=== PATIENT | female | born 1965 | race Caucasian/White ===

== ENCOUNTER 2019-02-03 11:29 | Emergency (ER) | payer SELFPAY ==
[~2019-02-03] VITALS: Ht 165.1 cm; Wt 108.9 kg
[2019-02-03] MEDS ORDERED: CRUTCH1 EACH (13:13)
== END 2019-02-03 13:29 | disposition home or self-care (01) ==
LOC: ED 11:29
DX: S93.402A Sprain of unspecified ligament of left ankle, initial encounter (principal); Z88.5 Allergy status to narcotic agent; Z79.899 Other long term (current) drug therapy; X50.1XXA Overexertion from prolonged static or awkward postures, initial encounter
CPT/HCPCS: 73610; 96372; 99283-25; J1885

== ENCOUNTER 2019-12-13 11:57 | Emergency (ER) | payer MEDICAID ==
[~2019-12-13] VITALS: Ht 165.1 cm; Wt 127.0 kg
[~2019-12-13 11:57] MED LIST: CRUTCH1 EACH
[2019-12-13] MEDS ORDERED: VENTOLIN HFA18 GM INH (12:11)
[2019-12-13] MEDS ORDERED: ZITHROMAX250 MG PO (15:37)
[2019-12-13] MEDS ORDERED: PREDNISONE20 MG PO (15:37)
--- NOTE | 2019-12-13 21:02 | EKG ---
[facility] [address] [facility] [place], [place] [address] Signed Normal sinus rhythm Low voltage QRS Borderline ECG No previous ECGs available Confirmed by LESTER GRANT MD ([id number]) on 12/13/2019 9:01:52 PM Electronically Signed By: LESTER GRANT MD 12/13/192101 PATIENT NAME: MARTHA JOYCE FERCHO Electrocardiogram DATE OF : 61 PHYSICIAN: LESTER GRANT MD REPORT #: [id number] REPORT IS CONFIDENTIAL AND NOT TO BE RELEASED WITHOUT AUTHORIZATION
== END 2019-12-13 16:13 | disposition home or self-care (01) ==
LOC: ED 11:57
DX: J44.1 Chronic obstructive pulmonary disease with (acute) exacerbation (principal); Z87.891 Personal history of nicotine dependence
CPT/HCPCS: 71045; 80053; 83880; 85025; 93005; 93010; 96374; 99285-25; J2930

== ENCOUNTER 2021-01-10 14:19 | Emergency (ER) | payer OTHER ==
[~2021-01-10] VITALS: Ht 165.1 cm; Wt 127.0 kg
[~2021-01-10 14:19] MED LIST changes: +PREDNISONE20 MG PO; +VENTOLIN HFA18 GM INH; +ZITHROMAX250 MG PO
--- OUTSIDE RECORDS SUMMARY | 2021-01-10 14:22 | XMS ---
PreManage Notification: MARTHA JOYCE Security Chassis Driver Events No recent Security Events currently on file CRITERIA MET - Group Notification CARE PROVIDERS There are no care providers on record at this time. David has no Care Guidelines for this patient. Care History Medical/Surgical 12/15/2019 [facility] -CHW CONTACTED PATIENT- DISCUSSED THE HELP WITH PCP SET UP. -PATIENT CURRENTLY DOES NOT HAVE INSURANCE-CHW SPOKE WITH [place]-PATIENT WILL BE SENDING IN DOCUMENTS TO [place] TO SEE IF PATIENT QUALIFIES FOR INSURANCE. -ONCE PATIENT INSURANCE IS ESTABLISHED SHE WILL CONTACT CHW TO HELP WITH PCP SET UP IN THE AREA. ECharisse. VISIT COUNT (12 MO.) 1 [facility] TOTAL 1 NOTE: Visits indicate total known visits. ED/UCC VISIT TRACKING (12 MO.) 01/10/2021 14:20 [facility] [place] TYPE: Emergency COMPLAINT: - LEFT LEG SWELLING, PUSSY INPATIENT VISIT TRACKING (12 MO.) No inpatient visits to display in this time frame [id number]
[2021-01-10] MEDS ORDERED: CEPHALEXIN500 M1 PO (18:19)
[2021-01-10] MEDS ORDERED: BACTRIM DS TAB1 EACH PO (18:19)
[2021-01-10] MEDS ORDERED: HYDROCODON-ACE1 EA11 PO (19:32)
== END 2021-01-10 20:03 | disposition home or self-care (01) ==
LOC: ED 14:19
DX: M70.42 Prepatellar bursitis, left knee (principal); L03.116 Cellulitis of left lower limb; J44.9 Chronic obstructive pulmonary disease, unspecified; Z87.891 Personal history of nicotine dependence; Z88.5 Allergy status to narcotic agent
CPT/HCPCS: 10060; 20610; 80053; 82945; 85025; 85810; 86431; 89051; 89060; 99152; 99283-25; J0690; J1170; J1885; J2250

== ENCOUNTER 2021-01-12 09:34 | Emergency (ER) | payer OTHER ==
[~2021-01-12] VITALS: Ht 165.1 cm; Wt 127.0 kg
[~2021-01-12 09:34] MED LIST changes: +BACTRIM DS TAB1 EACH PO; +CEPHALEXIN500 M1 PO; +HYDROCODON-ACE1 EA11 PO
--- OUTSIDE RECORDS SUMMARY | 2021-01-12 09:40 | XMS ---
PreManage Notification: MARTHA JOYCE Security Sash Maker Events No recent Security Events currently on file CRITERIA MET - Group Notification - [facility] - 2 Visits in 30 Days CARE PROVIDERS There are no care providers on record at this time. David has no Care Guidelines for this patient. Care History Medical/Surgical 12/15/2019 [facility] -CHW CONTACTED PATIENT- DISCUSSED THE HELP WITH PCP SET UP. -PATIENT CURRENTLY DOES NOT HAVE INSURANCE-CHW SPOKE WITH [place]-PATIENT WILL BE SENDING IN DOCUMENTS TO [place] TO SEE IF PATIENT QUALIFIES FOR INSURANCE. -ONCE PATIENT INSURANCE IS ESTABLISHED SHE WILL CONTACT CHW TO HELP WITH PCP SET UP IN THE AREA. [place] VISIT COUNT (12 MO.) 2 [facility] TOTAL 2 NOTE: Visits indicate total known visits. ED/UCC VISIT TRACKING (12 MO.) 01/12/2021 09:34 [facility] [place] TYPE: Emergency COMPLAINT: - KNEE PAIN 01/10/2021 14:20 [facility] [place] TYPE: Emergency COMPLAINT: - LEFT LEG SWELLING, PUSSY INPATIENT VISIT TRACKING (12 MO.) No inpatient visits to display in this time frame [id number]
[2021-01-12] MEDS ORDERED: CEFTRIAXON2 GM/50 ML IV (14:42)
[2021-01-12] MEDS ORDERED: NAPROSYN500 MG PO (14:42)
[2021-01-12] MEDS ORDERED: HYDROCODON-ACE1 EA10 PO (14:42)
== END 2021-01-12 15:30 | disposition home or self-care (01) ==
LOC: ED 09:34
DX: L03.116 Cellulitis of left lower limb (principal); J44.9 Chronic obstructive pulmonary disease, unspecified; Z88.5 Allergy status to narcotic agent; Z79.899 Other long term (current) drug therapy
CPT/HCPCS: 36556; 36569; 73700; 80053; 83605; 85025; 99284-25; J0696; J1885

== ENCOUNTER 2021-01-14 14:17 | Emergency (ER) | payer OTHER ==
[~2021-01-14] VITALS: Ht 165.1 cm; Wt 127.0 kg
[~2021-01-14 14:17] MED LIST changes: +CEFTRIAXON2 GM/50 ML IV; +HYDROCODON-ACE1 EA10 PO; +NAPROSYN500 MG PO
--- OUTSIDE RECORDS SUMMARY | 2021-01-14 14:24 | XMS ---
PreManage Notification: MARTHA JOYCE Security Bias Binding Folder Events No recent Security Events currently on file CRITERIA MET - Group Notification - [facility] - 2 Visits in 30 Days CARE PROVIDERS There are no care providers on record at this time. David has no Care Guidelines for this patient. Care History Medical/Surgical 12/15/2019 [facility] -CHW CONTACTED PATIENT- DISCUSSED THE HELP WITH PCP SET UP. -PATIENT CURRENTLY DOES NOT HAVE INSURANCE-CHW SPOKE WITH [place]-PATIENT WILL BE SENDING IN DOCUMENTS TO [place] TO SEE IF PATIENT QUALIFIES FOR INSURANCE. -ONCE PATIENT INSURANCE IS ESTABLISHED SHE WILL CONTACT CHW TO HELP WITH PCP SET UP IN THE AREA. Ronald VISIT COUNT (12 MO[address] [facility] TOTAL 3 NOTE: Visits indicate total known visits. ED/UCC VISIT TRACKING (12 MO.) 01/14/2021 14:18 [facility] [place] TYPE: Emergency COMPLAINT: - L LEG WOUND 01/12/2021 09:34 [facility] [place] TYPE: Emergency COMPLAINT: - KNEE PAIN 01/10/2021 14:20 [facility] [place] TYPE: Emergency COMPLAINT: - LEFT LEG SWELLING, PUSSY DIAGNOSES: - Cellulitis of left lower limb - Allergy status to narcotic agent - Chronic obstructive pulmonary disease, unspecified - Prepatellar bursitis, left knee - Pain in left knee - Personal history of nicotine dependence INPATIENT VISIT TRACKING (12 MO.) No inpatient visits to display in this time frame [id number]
[2021-01-14] MEDS ORDERED: HYDROCODON-ACE1 EAC8 PO (18:56)
== END 2021-01-14 19:22 | disposition short-term general hospital (02) ==
LOC: ED 14:17
DX: L03.116 Cellulitis of left lower limb (principal); B95.62 Methicillin resistant Staphylococcus aureus infection as the cause of diseases classified elsewhere; J44.9 Chronic obstructive pulmonary disease, unspecified; Z88.5 Allergy status to narcotic agent; Z79.899 Other long term (current) drug therapy; Z79.52 Long term (current) use of systemic steroids
CPT/HCPCS: 73701; 80053; 83605; 85025; 99284-25; A9270; J1885; J3370; Q9967

== ENCOUNTER 2021-08-22 10:35 | Emergency (ER) | payer OTHER ==
[~2021-08-22] VITALS: Ht 167.6 cm; Wt 126.5 kg
[~2021-08-22 10:35] MED LIST changes: +HYDROCODON-ACE1 EAC8 PO
--- OUTSIDE RECORDS SUMMARY | 2021-08-22 10:38 | XMS ---
PreManage Notification: MARTHA JOYCE Security Inside Upholsterer Events No recent Security Events currently on file CRITERIA MET - Group Notification - PDMP CARE PROVIDERS There are no care providers on record at this time. David has no Care Guidelines for this patient. Care History Medical/Surgical 12/15/2019 [facility] -CHW CONTACTED PATIENT- DISCUSSED THE HELP WITH PCP SET UP. -PATIENT CURRENTLY DOES NOT HAVE INSURANCE-CHW SPOKE WITH [place]-PATIENT WILL BE SENDING IN DOCUMENTS TO [place] TO SEE IF PATIENT QUALIFIES FOR INSURANCE. -ONCE PATIENT INSURANCE IS ESTABLISHED SHE WILL CONTACT CHW TO HELP WITH PCP SET UP IN THE AREA. E.Evon. VISIT COUNT (12 MO.) 4 [facility] TOTAL 4 NOTE: Visits indicate total known visits. ED/UCC VISIT TRACKING (12 MO.) 08/22/2021 10:37 [facility] [place] TYPE: Emergency COMPLAINT: - LUMPS IN ARM PITS 01/14/2021 14:18 [facility] [place] TYPE: Emergency COMPLAINT: - L LEG WOUND/ NO INJ DIAGNOSES: - Methicillin resistant Staphylococcus aureus infection as the cause of diseases classified elsewhere - Cellulitis of left lower limb - manager terminal (current) use of systemic steroids - Chronic obstructive pulmonary disease, unspecified - Other snf (current) drug therapy - Allergy status to narcotic agent 01/12/2021 09:34 [facility] [place] TYPE: Emergency COMPLAINT: - KNEE PAIN DIAGNOSES: - Allergy status to narcotic agent - Cellulitis of left lower limb - Chronic obstructive pulmonary disease, unspecified - Other termite exterminator helper (current) drug therapy 01/10/2021 14:20 [facility] [place] TYPE: Emergency COMPLAINT: - LEFT LEG SWELLING, PUSSY DIAGNOSES: - Cellulitis of left lower limb - Allergy status to narcotic agent - Chronic obstructive pulmonary disease, unspecified - Prepatellar bursitis, left knee - Pain in left knee - Personal history of nicotine dependence INPATIENT VISIT TRACKING (12 MO.) No inpatient visits to display in this time frame [id number]
[2021-08-22] MEDS ORDERED: HYDROCODON-ACE1 EA11 PO (13:01)
[2021-08-22] MEDS ORDERED: BACTRIM DS TAB1 EACH PO (13:01)
== END 2021-08-22 13:57 | disposition home or self-care (01) ==
LOC: ED 10:35
DX: L02.411 Cutaneous abscess of right axilla (principal); J44.9 Chronic obstructive pulmonary disease, unspecified; Z88.5 Allergy status to narcotic agent; Z79.899 Other long term (current) drug therapy
CPT/HCPCS: 10060; 99282-25; A9270

== ENCOUNTER 2021-11-05 13:16 | Emergency (ER) | payer OTHER ==
[~2021-11-05] VITALS: Ht 167.6 cm; Wt 114.3 kg
--- OUTSIDE RECORDS SUMMARY | 2021-11-05 13:20 | XMS ---
PreManage Notification: MARTHA JOYCE Security Ict Managers Events No recent Security Events currently on file CRITERIA MET - PDMP - Group Notification CARE PROVIDERS There are no care providers on record at this time. David has no Care Guidelines for this patient. Care History Medical/Surgical 12/15/2019 [facility] -CHW CONTACTED PATIENT- DISCUSSED THE HELP WITH PCP SET UP. -PATIENT CURRENTLY DOES NOT HAVE INSURANCE-CHW SPOKE WITH [place]-PATIENT WILL BE SENDING IN DOCUMENTS TO [place] TO SEE IF PATIENT QUALIFIES FOR INSURANCE. -ONCE PATIENT INSURANCE IS ESTABLISHED SHE WILL CONTACT CHW TO HELP WITH PCP SET UP IN THE AREA. E.Evon. VISIT COUNT (12 MO.) 5 [facility] TOTAL 5 NOTE: Visits indicate total known visits. ED/UCC VISIT TRACKING (12 MO.) 11/05/2021 13:18 [facility] [place] TYPE: Emergency COMPLAINT: - LEFT PAIN IN BACK 08/22/2021 10:37 [facility] [place] TYPE: Emergency COMPLAINT: - LUMPS IN ARM PITS DIAGNOSES: - Other termite inspector (current) drug therapy - Chronic obstructive pulmonary disease, unspecified - Allergy status to narcotic agent - Cutaneous abscess of right axilla 01/14/2021 14:18 [facility] [place] TYPE: Emergency COMPLAINT: - L LEG WOUND/ NO INJ DIAGNOSES: - Methicillin resistant Staphylococcus aureus infection as the cause of diseases classified elsewhere - Cellulitis of left lower limb - [facility] (current) use of systemic steroids - Chronic obstructive pulmonary disease, unspecified - Other shelter (current) drug therapy - Allergy status to narcotic agent 01/12/2021 09:34 [facility] [place] TYPE: Emergency COMPLAINT: - KNEE PAIN DIAGNOSES: - Allergy status to narcotic agent - Cellulitis of left lower limb - Chronic obstructive pulmonary disease, unspecified - Other shelter (current) drug therapy 01/10/2021 14:20 [facility] [place] [...] visits to display in this time frame [id number]
== END 2021-11-05 15:11 | disposition home or self-care (01) ==
LOC: ED 13:16
DX: N13.2 Hydronephrosis with renal and ureteral calculous obstruction (principal); J44.9 Chronic obstructive pulmonary disease, unspecified; E07.9 Disorder of thyroid, unspecified; Z88.5 Allergy status to narcotic agent; Z79.899 Other long term (current) drug therapy; Z88.7 Allergy status to serum and vaccine
CPT/HCPCS: 81001; 99283

== ENCOUNTER 2021-12-24 19:05 | Emergency (ER) | payer OTHER ==
[~2021-12-24] VITALS: Ht 167.6 cm; Wt 118.4 kg
--- OUTSIDE RECORDS SUMMARY | 2021-12-24 19:08 | XMS ---
PreManage Notification: MARTHA JOYCE Security Broom Stitcher Events No recent Security Events currently on file CRITERIA MET - [facility] CARE PROVIDERS MARÍA ZAMARRIPA Physician Corrosion Technician Current PHONE: [phone] David has no Care Guidelines for this patient. Care History Medical/Surgical 12/15/2019 [facility] -CHW CONTACTED PATIENT- DISCUSSED THE HELP WITH PCP SET UP. -PATIENT CURRENTLY DOES NOT HAVE INSURANCE-CHW SPOKE WITH [place]-PATIENT WILL BE SENDING IN DOCUMENTS TO [place] TO SEE IF PATIENT QUALIFIES FOR INSURANCE. -ONCE PATIENT INSURANCE IS ESTABLISHED SHE WILL CONTACT CHW TO HELP WITH PCP SET UP IN THE AREA. [place] VISIT COUNT (12 MO.) 6 [facility] TOTAL 6 NOTE: Visits indicate total known visits. ED/UCC VISIT TRACKING (12 MO.) 12/24/2021 19:05 [facility] [place] TYPE: Emergency COMPLAINT: - POST OP PROBLEM 11/05/2021 13:18 [facility] [place] TYPE: Emergency COMPLAINT: - LEFT PAIN IN BACK DIAGNOSES: - Chronic obstructive pulmonary disease, unspecified - Allergy status to narcotic agent - Allergy status to serum and vaccine - Unspecified abdominal pain - Disorder of thyroid, unspecified - Hydronephrosis with renal and ureteral calculous obstruction - Other prison (current) drug therapy 08/22/2021 10:37 [facility] [place] TYPE: Emergency COMPLAINT: - LUMPS IN ARM PITS DIAGNOSES: - Other prison (current) drug therapy - Chronic obstructive pulmonary disease, unspecified - Allergy status to narcotic agent - Cutaneous abscess of right axilla 01/14/2021 14:18 [facility] [place] TYPE: Emergency COMPLAINT: - L LEG WOUND/ NO INJ DIAGNOSES: - Methicillin resistant Staphylococcus aureus infection as the cause of diseases classified elsewhere - Cellulitis of left lower limb - terminal operator (current) use of systemic steroids - Chronic obstructive pulmonary disease, unspecified - Other prison (current) drug therapy - Allergy status to narcotic agent 01/12/2021 09:34 [facility] [place] TYPE: Emergency COMPLAINT: - KNEE PAIN DIAGNOSES: - Allergy status to narcotic agent - Cellulitis of left lower limb - Chronic obstructive pulmonary disease, unspecified - Other ferry terminal supervisor (current) drug therapy 01/10/2021 14:[address] [facility] [place] TYPE: Emergency COMPLAINT: - LEFT LEG SWELLING, PUSSY DIAGNOSES: - Cellulitis of left lower limb - Allergy status to narcotic agent - Chronic obstructive pulmonary disease, unspecified - Prepatellar bursitis, left knee - Pain in left knee - Personal history of nicotine dependence INPATIENT VISIT TRACKING (12 MO.) No inpatient visits to display in this time frame [id number]
[2021-12-24] MEDS ORDERED: ONDANSETRON ODT8 MG PO (21:33)
== END 2021-12-24 21:52 | disposition home or self-care (01) ==
LOC: ED 19:05
DX: R10.9 Unspecified abdominal pain (principal); Z98.890 Other specified postprocedural states; J44.9 Chronic obstructive pulmonary disease, unspecified; E07.9 Disorder of thyroid, unspecified; Z88.5 Allergy status to narcotic agent; Z88.7 Allergy status to serum and vaccine
CPT/HCPCS: 36415; 74176; 80053; 81001; 85025; 96374; 96375; 99284-25; A9270; J1885; J2405

== ENCOUNTER 2022-07-08 09:44 | Emergency (ER) | payer OTHER ==
[~2022-07-08] VITALS: Ht 167.6 cm; Wt 127.4 kg
[~2022-07-08 09:44] MED LIST changes: +ONDANSETRON ODT8 MG PO
[2022-07-08] MEDS ORDERED: BUDESONIDE-FO10.2 G1 (10:02)
[2022-07-08] MEDS ORDERED: SPIRIVA RESPIMAT4 GM INH (10:02)
[2022-07-08] MEDS ORDERED: LISINOPRIL10 MG PO (10:02)
[2022-07-08] MEDS ORDERED: VENTOLIN HFA18 GM INH (10:03)
[2022-07-08] MEDS ORDERED: PREDNISONE20 MG PO (12:16)
--- NOTE | 2022-07-09 21:05 | EKG ---
[facility] [address] [place] [address] Signed Normal sinus rhythm Normal ECG When compared with ECG of 13-DEC-2019 12:12, No significant change was found Confirmed by Fermin Horton MD () on 07/09/2022 9:04:49 PM Electronically Signed By: FERMIN HORTON MD 07/09/222104 PATIENT NAME: MARTHA JOYCE FERCHO Electrocardiogram DATE OF : 61 PHYSICIAN: FERMIN HORTON MD REPORT #: [id number] REPORT IS CONFIDENTIAL AND NOT TO BE RELEASED WITHOUT AUTHORIZATION
== END 2022-07-08 12:31 | disposition home or self-care (01) ==
LOC: ED 09:44
DX: J44.1 Chronic obstructive pulmonary disease with (acute) exacerbation (principal); Z20.822 Contact with and (suspected) exposure to COVID-19; Z87.442 Personal history of urinary calculi; Z88.5 Allergy status to narcotic agent; Z79.899 Other long term (current) drug therapy
CPT/HCPCS: 36415; 71045; 80053; 83735; 84484; 85025; 87502; 93005; 93010; 94640; 96374; 99285-25; C9803; J2930; U0003

== ENCOUNTER 2022-08-23 17:36 | Emergency (ER) | payer OTHER ==
[~2022-08-23] VITALS: Ht 167.6 cm; Wt 127.4 kg
[~2022-08-23 17:36] MED LIST changes: +BUDESONIDE-FO10.2 G1; +LISINOPRIL10 MG PO; +SPIRIVA RESPIMAT4 GM INH
[2022-08-23] MEDS ORDERED: AZITHROMYCIN500 MG PO (21:00)
[2022-08-23] MEDS ORDERED: IPRAT-ALBUT 0.5-3 ML INH (21:00)
--- NOTE | 2022-08-25 12:25 | EKG ---
[facility] [address] [place] [address] Signed Normal sinus rhythm Normal ECG When compared with ECG of 08-JUL-2022 10:18, No significant change was found Confirmed by Fermin Horton MD () on 08/23/2022 11:33:03 PM Electronically Signed By: FERMIN HORTON MD 08/23/22 2333 Electronically Signed By: FERMIN HORTON MD 08/25/22 1225 PATIENT NAME: MARIA DEL CARMENMARTHA Electrocardiogram DATE OF : 61 PHYSICIAN: FERMIN HORTON MD REPORT #: [id number] REPORT IS CONFIDENTIAL AND NOT TO BE RELEASED WITHOUT AUTHORIZATION
== END 2022-08-23 21:24 | disposition home or self-care (01) ==
LOC: ED 17:36
DX: J44.1 Chronic obstructive pulmonary disease with (acute) exacerbation (principal); Z20.822 Contact with and (suspected) exposure to COVID-19; Z88.5 Allergy status to narcotic agent; Z79.899 Other long term (current) drug therapy; Z79.52 Long term (current) use of systemic steroids
CPT/HCPCS: 36415; 71045; 80053; 83735; 83880; 84484; 85025; 87502; 93005; 93010; 99285-25; C9803; U0003

== ENCOUNTER 2023-01-13 11:46 | Emergency (ER) | payer OTHER ==
[~2023-01-13] VITALS: Ht 167.6 cm; Wt 136.1 kg
[~2023-01-13 11:46] MED LIST changes: +AZITHROMYCIN500 MG PO; +IPRAT-ALBUT 0.5-3 ML INH
[2023-01-13] MEDS ORDERED: TRELEGY ELLIPT1 EACH INH (12:07)
[2023-01-13] MEDS ORDERED: LEVOFLOXACIN750 MG PO (17:09)
[2023-01-13] MEDS ORDERED: PREDNISONE10 MG PO (17:09)
[2023-01-13 17:29] VITALS: BP 134/74
--- NOTE | 2023-01-14 16:43 | EKG ---
[facility] [address] [facility] [place] [address] Signed Normal sinus rhythm Normal ECG When compared with ECG of 23-AUG-2022 17:57, No significant change was found Confirmed by LESTER GRANT MD ([id number]) on 01/14/2023 4:43:04 PM Electronically Signed By: LESTER GRANT MD 01/14/23 1643 PATIENT NAME: MARTHA JOYCE FERCHO Electrocardiogram DATE OF : 61 PHYSICIAN: LESTER GRANT MD REPORT #: [id number] REPORT IS CONFIDENTIAL AND NOT TO BE RELEASED WITHOUT AUTHORIZATION
== END 2023-01-13 17:31 | disposition home or self-care (01) ==
LOC: ED 11:46
DX: J40 Bronchitis, not specified as acute or chronic (principal); J44.9 Chronic obstructive pulmonary disease, unspecified; Z88.5 Allergy status to narcotic agent; Z79.52 Long term (current) use of systemic steroids; Z79.899 Other long term (current) drug therapy
CPT/HCPCS: 36415; 71045; 80053; 83880; 85025; 93005; 93010; 94640; C9803; U0003

== ENCOUNTER 2023-05-03 09:59 | Inpatient (IN) | payer OTHER ==
[~2023-05-03] VITALS: Ht 167.6 cm; Wt 154.0 kg
--- OUTSIDE RECORDS SUMMARY | ~2023-05-03 | XMS | Continuity of Care Document ---
Demographics + + + | Address | [address] | | | [place] [address] | + + + | Preferred Language | Unknown | + + + | Marital Status | Never | + + + | Hinduism Affiliation | Unknown | + + + | Race | White | + + + | Ethnic Group | Not or | + + + Author + + + | Author | [facility] | + + + | Organization | [facility] | + + + | Address | [address] | | | [place] [address] | + + + | Phone | | + + + Care Team Providers + + + + | Care Typing Bookkeeper Name | Role | Phone | + + + + Unavailable | Unavailable | + + + + Unavailable | Unavailable | + + + + Unavailable | Unavailable | + + + + Allergies and Intolerances + + + + + + | date | description | facility | reaction | severity | + + + + + + | (no date) | Morphine | [facility] | (no reaction) | (no severity) | | | | [facility] | | | + + + + + + | (no date) | Tongue | [facility] | (no reaction) | (no severity) | | | swelling | [facility] | | | + + + + + + | (no date) | Morphine | [facility] | (no reaction) | (no severity) | | | | [facility] | | | + + + + + + | (no date) | Morphine | [facility] | (no reaction) | (no severity) | | | | [facility] | | | + + + + + + | (no date) | morphine | [facility] | (no reaction) | (no severity) | + + + + + + | (no date) | TDAP | [facility] | (no reaction) | (no severity) | + + + + + + Encounters No information. Functional Status No information. Immunizations No information. Medications + + + + | date | description | facility | + + + + | 2021-01-12 00:00 | NAPROXEN | [facility] | + + + + | 2021-01-12 00:00 | NAPROXEN | [facility] | + + + + | 2022-07-08 00:00 | Budesonide/Formoterol | [facility] | | | Fumarate | | + + + + | 2022-08-25 00:00 | Budesonide/Formoterol | [facility] | | | Fumarate | | + + + + | 2023-01-13 00:00 | Budesonide/Formoterol | [facility] | | | Fumarate | | + + + + | 2023-03-13 00:00 | Budesonide/Formoterol | [facility] | | | Fumarate | | + + + + | 2022-08-23 00:00 | IPRATROPIUM/ALBUTEROL | [facility] | | | SULFATE | | + + + + | 2022-08-23 00:00 | IPRATROPIUM/ALBUTEROL | [facility] | | | SULFATE | | + + + + | 2023-03-13 00:00 | IPRATROPIUM/ALBUTEROL | [facility] | | | SULFATE | | + + + + | 2023-03-13 00:00 | MONTELUKAST SODIUM | [facility] | + + + + | 2022-07-08 00:00 | TIOTROPIUM BROMIDE | [facility] | + + + + | 2022-08-25 00:00 | TIOTROPIUM BROMIDE | [facility] | + + + + | 2023-01-13 00:00 | TIOTROPIUM BROMIDE | [facility] | + + + + | 2023-03-13 00:00 | TIOTROPIUM BROMIDE | [facility] | + + + + | 2021-01-12 00:00 | CEFTRIAXONE | [facility] | | | NA/DEXTROSE,ISO | | + + + + | 2021-01-12 00:00 | CEFTRIAXONE | [facility] | | | NA/DEXTROSE,ISO | | + + + + | 2023-01-13 00:00 | | [facility] | | | Fluticasone/Umeclidin/Vilan | | | | ter | | + + + + | 2023-03-13 00:00 | | [facility] | | | Fluticasone/Umeclidin/Vilan | | | | ter | | + + + + | 2021-01-10 00:00 | CEPHALEXIN | [facility] | + + + + | 2021-01-10 00:00 | CEPHALEXIN | [facility] | + + + + | 2023-01-13 00:00 | predniSONE | [facility] | + + + + | 2023-03-13 00:00 | predniSONE | [facility] | + + + + | 2019-12-13 00:00 | AZITHROMYCIN | [facility] | + + + + | 2019-12-13 00:00 | AZITHROMYCIN | [facility] | + + + + | 2023-01-13 00:00 | LEVOFLOXACIN | [facility] | + + + + | 2021-12-24 00:00 | ONDANSETRON | [facility] | + + + + | 2021-12-24 00:00 | ONDANSETRON | [facility] | + + + + | 2019-12-13 00:00 | predniSONE | [facility] | + + + + | 2019-12-13 00:00 | predniSONE | [facility] | + + + + | 2022-07-08 00:00 | predniSONE | [facility] | + + + + | 2022-07-08 00:00 | predniSONE | [facility] | + + + + | 2022-07-08 00:00 | LISINOPRIL | [facility] | + + + + | 2022-08-25 00:00 | LISINOPRIL | [facility] | + + + + | 2023-01-13 00:00 | LISINOPRIL | [facility] | + + + + | 2023-03-13 00:00 | LISINOPRIL | [facility] | + + + + | 2022-08-23 00:00 | AZITHROMYCIN | [facility] | + + + + | 2022-08-23 00:00 | AZITHROMYCIN | [facility] | + + + + | 2023-03-13 00:00 | AZITHROMYCIN | [facility] | + + + + | 2021-01-10 00:00 | | [facility] | | | SULFAMETHOXAZOLE/TRIMETHOPR | | | | IM DS | | + + + + | 2021-01-10 00:00 | | [facility] | | | SULFAMETHOXAZOLE/TRIMETHOPR | | | | IM DS | | + + + + | 2021-01-14 00:00 | HYDROCODONE | [facility] | | | BIT/ACETAMINOPHEN | | + + + + | 2021-01-14 00:00 | HYDROCODONE | [facility] | | | BIT/ACETAMINOPHEN | | + + + + | 2021-01-12 00:00 | HYDROCODONE | [facility] | | | BIT/ACETAMINOPHEN | | + + + + | 2021-01-12 00:00 | HYDROCODONE | [facility] | | | BIT/ACETAMINOPHEN | | + + + + | 2021-01-10 00:00 | HYDROCODONE | [facility] | | | BIT/ACETAMINOPHEN | | + + + + | 2021-01-10 00:00 | HYDROCODONE | [facility] | | | BIT/ACETAMINOPHEN | | + + + + | 2021-08-22 00:00 | HYDROCODONE | [facility] | | | BIT/ACETAMINOPHEN | | + + + + | 2021-08-22 00:00 | HYDROCODONE | [facility] | | | BIT/ACETAMINOPHEN | | + + + + | 2022-07-08 00:00 | ALBUTEROL SULFATE | [facility] | + + + + | 2022-08-25 00:00 | ALBUTEROL SULFATE | [facility] | + + + + | 2023-01-13 00:00 | ALBUTEROL SULFATE | [facility] | + + + + | 2023-03-13 00:00 | ALBUTEROL SULFATE | [facility] | + + + + Problems + + + + | date | description | facility | + + + + | 2019-02-03 00:00 | Sprain of left ankle | [facility] | + + + + | 2019-02-03 00:00 | Sprain of left ankle | [facility] | + + + + | 2021-01-10 00:00 | Cellulitis of left lower | [facility] | | | extremity | | + + + + | 2021-01-10 00:00 | Cellulitis of left lower | [facility] | | | extremity | | + + + + | 2021-01-10 00:00 | Prepatellar bursitis of | [facility] | | | left knee | | + + + + | 2021-01-10 00:00 | Prepatellar bursitis of | [facility] | | | left knee | | + + + + | 2021-01-14 00:00 | Cellulitis due to | [facility] | | | methicillin-resistant | | | | Staphylococcus aureus | | | | (MRSA) | | + + + + | 2021-01-14 00:00 | Cellulitis due to | [facility] | | | methicillin-resistant | | | | Staphylococcus aureus | | | | (MRSA) | | + + + + | 2021-08-22 00:00 | Abscess of right axilla | [facility] | + + + + | 2021-08-22 00:00 | Abscess of right axilla | [facility] | + + + + | 2021-11-05 00:00 | Calculus of kidney | [facility] | + + + + | 2021-11-05 00:00 | Calculus of kidney | [facility] | + + + + | 2021-12-24 00:00 | Left flank pain | [facility] | + + + + | 2021-12-24 00:00 | Left flank pain | [facility] | + + + + | 2021-12-24 00:00 | Status post laser | [facility] | | | lithotripsy of ureteral | | | | calculus | | + + + + | 2021-12-24 00:00 | Status post laser | [facility] | | | lithotripsy of ureteral | | | | calculus | | + + + + | 2022-07-08 00:00 | Acute exacerbation of | [facility] | | | chronic obstructive | | | | pulmonary disease | | + + + + | 2022-07-08 00:00 | Acute exacerbation of | [facility] | | | chronic obstructive | | | | pulmonary disease | | + + + + | 2022-11-06 13:30 | CALCULUS OF KIDNEY WITH | [facility] | | | CALCULUS OF URET | | + + + + | 2022-11-14 11:46 | CHRONIC OBSTRUCTIVE | [facility] | | | PULMONARY DISEASE, | | | | UNSPECIFIED | | + + + + | 2022-11-14 11:46 | FATTY (CHANGE OF) LIVER, | [facility] | | | NOT ELSEWHERE CLASSIFIED | | + + + + | 2022-11-14 11:46 | CALCULUS OF KIDNEY | [facility] | + + + + | 2023-01-02 15:04 | UNILATERAL PRIMARY | [facility] | | | OSTEOARTHRITIS, RIGHT HIP | | + + + + | 2023-01-02 15:04 | PAIN IN RIGHT HIP | [facility] | + + + + | 2023-01-13 00:00 | Bronchitis | [facility] | + + + + | 2023-01-13 11:47 | Bronchitis, not specified | [facility] | | | as acute or chronic | | + + + + | 2023-01-13 11:47 | CHRONIC OBSTRUCTIVE | [facility] | | | PULMONARY DISEASE, | | | | UNSPECIFIED | | + + + + | 2023-01-13 11:47 | SHORTNESS OF BREATH | [facility] | + + + + | 2023-01-13 11:47 | CLIENT TECHNICAL SUPPORT ASSOCIATE (CURRENT) USE OF | [facility] | | | SYSTEMIC STEROIDS | | + + + + | 2023-01-13 11:47 | OTHER [facility] (CURRENT) | [facility] | | | DRUG THERAPY | | + + + + | 2023-01-13 11:47 | ALLERGY STATUS TO NARCOTIC | [facility] | | | AGENT STATUS | | + + + + | 2023-03-13 00:00 | Exacerbation of asthma | [facility] | + + + + | 2023-03-13 00:00 | Dyspnea | [facility] | + + + + | 2023-03-13 00:00 | Hypoxia | [facility] | + + + + | 2023-03-13 15:20 | CHRONIC OBSTRUCTIVE | [facility] | | | PULMONARY DISEASE, | | | | UNSPECIFIED | | + + + + | 2023-03-13 15:20 | UNSPECIFIED ASTHMA WITH | [facility] | | | (ACUTE) EXACERBATION | | + + + + | 2023-03-13 15:20 | SHORTNESS OF BREATH | [facility] | + + + + | 2023-03-13 15:20 | HYPOXEMIA | [facility] | + + + + | 2023-03-13 15:20 | OTHER [facility] (CURRENT) | [facility] | | | DRUG THERAPY | | + + + + | 2023-03-13 15:20 | ALLERGY STATUS TO NARCOTIC | [facility] | | | AGENT STATUS | | + + + + | 2023-03-13 15:20 | ALLERGY STATUS TO SERUM | [facility] | | | AND VACCINE STATUS | | + + + + | 2023-03-16 12:07 | CHRONIC OBSTRUCTIVE | [facility] | | | PULMONARY DISEASE W (ACUTE) | | | | EXACERBATION | | + + + + | 2023-03-16 12:07 | CHRONIC OBSTRUCTIVE | [facility] | | | PULMONARY DISEASE W | | + + + + Procedures No information. Results/Labs +--------+--------+ +---------+--------+---------+ | test | date | facility | value | unit | notes | +--------+--------+ +---------+--------+---------+ + + | Result panel 1 | + + + + + + + + + | | 2022-07-08 | [facility] | NEGATIVE | (missing) | (missing) | | (unavailable | 09:55 | [facility] | | | | + + + + + + + + + | Result panel 2 | + + + + + + + + + | | 2022-07-08 | [facility] | NEGATIVE | (missing) | (missing) | | (unavailable | 09:55 | [facility] | | | | + + + + + + + + + | Result panel 3 | + + + + + + + + + | | 2022-07-08 | [facility] | NEGATIVE | (missing) | (missing) | | (unavailable | 09:55 | [facility] | | | | + + + + + + + + + | Result panel 4 | + + + + + + + + + | | 2022-07-08 | [facility] | NEGATIVE | (missing) | (missing) | | (unavailable | 09:55 | [facility] | | | | + + + + + + + + + | Result panel 5 | + + + + + +------+ + + | | 2022-07-08 | [facility] | 46 | (missing) | (missing) | | (unavailable | 10:25 | [facility] | | | | + + + +------+ + + + + | Result panel 6 | + + + + + +-------+ + + | | 2022-07-08 | [facility] | 104 | (missing) | (missing) | | (unavailable | 10:25 | [facility] | | | | + + + +-------+ + + + + | Result panel 7 | + + + + + +-------+ + + | | 2022-07-08 | [facility] | 6.2 | (missing) | (missing) | | (unavailable | 10:25 | [facility] | | | | + + + +-------+ + + + + | Result panel 8 | + + + + + +--------+ + + | | 2022-07-08 | [facility] | 11.8 | (missing) | (missing) | | (unavailable | 10:25 | [facility] | | | | + + + +--------+ + + + + | Result panel 9 | + + + + + +--------+ + + | | 2022-07-08 | [facility] | 4.66 | (missing) | (missing) | | (unavailable | 10:25 | [facility] | | | | + + + +--------+ + + + + | Result panel 10 | + + + + + +--------+ + + | | 2022-07-08 | [facility] | 15.3 | (missing) | (missing) | | (unavailable | 10:25 | [facility] | | | | + + + +--------+ + + + + | Result panel 11 | + + + + + +--------+ + + | | 2022-07-08 | [facility] | 45.6 | (missing) | (missing) | | (unavailable | 10:25 | [facility] | | | | + + + +--------+ + + + + | Result panel 12 | + + + + + +--------+ + + | | 2022-07-08 | [facility] | 97.9 | (missing) | (missing) | | (unavailable | 10:25 | [facility] | | | | + + + +--------+ + + + + | Result panel 13 | + + + + + +--------+ + + | | 2022-07-08 | [facility] | 32.8 | (missing) | (missing) | | (unavailable | 10:25 | [facility] | | | | + + + +--------+ + + + + | Result panel 14 | + + + + + +--------+ + + | | 2022-07-08 | [facility] | 33.5 | (missing) | (missing) | | (unavailable | 10:25 | [facility] | | | | + + + +--------+ + + + + | Result panel 15 | + + + + + +--------+ + + | | 2022-07-08 | [facility] | 13.8 | (missing) | (missing) | | (unavailable | 10:25 | [facility] | | | | + + + +--------+ + + + + | Result panel 16 | + + + + + +-------+ + + | | 2022-07-08 | [facility] | 246 | (missing) | (missing) | | (unavailable | 10:25 | [facility] | | | | + + + +-------+ + + + + | Result panel 17 | + + + + + +--------+ + + | | 2022-07-08 | [facility] | 66.2 | (missing) | (missing) | | (unavailable | 10:25 | [facility] | | | | + + + +--------+ + + + + | Result panel 18 | + + + + + +--------+ + + | | 2022-07-08 | [facility] | 24.1 | (missing) | (missing) | | (unavailable | 10:25 | [facility] | | | | + + + +--------+ + + + + | Result panel 19 | + + + + + +-------+ + + | | 2022-07-08 | [facility] | 7.0 | (missing) | (missing) | | (unavailable | 10:25 | [facility] | | | | + + + +-------+ + + + + | Result panel 20 | + + + + + +-------+ + + | | 2022-07-08 | [facility] | 1.6 | (missing) | (missing) | | (unavailable | 10:25 | [facility] | | | | + + + +-------+ + + + + | Result panel 21 | + + + + + +-------+ + + | | 2022-07-08 | [facility] | 1.1 | (missing) | (missing) | | (unavailable | 10:25 | [facility] | | | | + + + +-------+ + + + + | Result panel 22 | + + + + + +-------+---------+ + | | 2022-07-08 | [facility] | 151 | mg/dL | (missing) | | (unavailable | 10:25 | [facility] | | | | + + + +-------+---------+ + + + | Result panel 23 | + + + + + +------+---------+ + | | 2022-07-08 | [facility] | 22 | mg/dL | (missing) | | (unavailable | 10:25 | [facility] | | | | + + + +------+---------+ + + + | Result panel 24 | + + + + + +--------+---------+ + | | 2022-07-08 | [facility] | 1.04 | mg/dL | (missing) | | (unavailable | 10:25 | [facility] | | | | + + + +--------+---------+ + + + | Result panel 25 | + + + + + +------+ + + | | 2022-07-08 | [facility] | 62 | (missing) | (missing) | | (unavailable | 10:25 | [facility] | | | | + + + +------+ + + + + | Result panel 26 | + + + + + +---------+ + + | | 2022-07-08 | [facility] | 21.15 | (missing) | (missing) | | (unavailable | 10:25 | [facility] | | | | + + + +---------+ + + + + | Result panel 27 | + + + + + +-------+ + + | | 2022-07-08 | [facility] | 137 | (missing) | (missing) | | (unavailable | 10:25 | [facility] | | | | + + + +-------+ + + + + | Result panel 28 | + + + + + +-------+ + + | | 2022-07-08 | [facility] | 4.0 | (missing) | (missing) | | (unavailable | 10:25 | [facility] | | | | + + + +-------+ + + + + | Result panel 29 | + + + + + +-------+ + + | | 2022-07-08 | [facility] | 100 | (missing) | (missing) | | (unavailable | 10:25 | [facility] | | | | + + + +-------+ + + + + | Result panel 30 | + + + + + +------+ + + | | 2022-07-08 | [facility] | 24 | (missing) | (missing) | | (unavailable | 10:25 | [facility] | | | | + + + +------+ + + + + | Result panel 31 | + + + + + +--------+ + + | | 2022-07-08 | [facility] | 17.0 | (missing) | (missing) | | (unavailable | 10:25 | [facility] | | | | + + + +--------+ + + + + | Result panel 32 | + + + + + +-------+---------+ + | | 2022-07-08 | [facility] | 8.9 | mg/dL | (missing) | | (unavailable | 10:25 | [facility] | | | | + + + +-------+---------+ + + + | Result panel 33 | + + + + + +-------+---------+ + | | 2022-07-08 | [facility] | 1.7 | mg/dL | (missing) | | (unavailable | 10:25 | [facility] | | | | + + + +-------+---------+ + + + | Result panel 34 | + + + + + +-------+ + + | | 2022-07-08 | [facility] | 7.5 | (missing) | (missing) | | (unavailable | 10:25 | [facility] | | | | + + + +-------+ + + + + | Result panel 35 | + + + + + +-------+ + + | | 2022-07-08 | [facility] | 3.4 | (missing) | (missing) | | (unavailable | 10:25 | [facility] | | | | + + + +-------+ + + + + | Result panel 36 | + + + + + +-------+ + + | | 2022-07-08 | [facility] | 4.1 | (missing) | (missing) | | (unavailable | 10:25 | [facility] | | | | + + + +-------+ + + + + | Result panel 37 | + + + + + +--------+ + + | | 2022-07-08 | [facility] | 0.83 | (missing) | (missing) | | (unavailable | 10:25 | [facility] | | | | + + + +--------+ + + + + | Result panel 38 | + + + + + +-------+ + + | | 2022-07-08 | [facility] | 0.3 | (missing) | (missing) | | (unavailable | 10:25 | [facility] | | | | + + + +-------+ + + + + | Result panel 39 | + + + + + +------+ + + | | 2022-07-08 | [facility] | 25 | (missing) | (missing) | | (unavailable | 10:25 | [facility] | | | | + + + +------+ + + + + | Result panel 40 | + + + + + +--------+ + + | | 2022-08-23 | [facility] | 12.9 | (missing) | (missing) | | (unavailable | 17:45:08 | [facility] | | | | + + + +--------+ + + + + | Result panel 41 | + + + + + +--------+ + + | | 2022-08-23 | [facility] | 4.09 | (missing) | (missing) | | (unavailable | 17:45:08 | [facility] | | | | + + + +--------+ + + + + | Result panel 42 | + + + + + +--------+ + + | | 2022-08-23 | [facility] | 13.4 | (missing) | (missing) | | (unavailable | 17:45:08 | [facility] | | | | + + + +--------+ + + + + | Result panel 43 | + + + + + +--------+ + + | | 2022-08-23 | [facility] | 40.0 | (missing) | (missing) | | (unavailable | 17:45:08 | [facility] | | | | + + + +--------+ + + + + | Result panel 44 | + + + + + +--------+ + + | | 2022-08-23 | [facility] | 97.8 | (missing) | (missing) | | (unavailable | 17:45:08 | [facility] | | | | + + + +--------+ + + + + | Result panel 45 | + + + + + +--------+ + + | | 2022-08-23 | [facility] | 32.7 | (missing) | (missing) | | (unavailable | 17:45:08 | [facility] | | | | + + + +--------+ + + + + | Result panel 46 | + + + + + +--------+ + + | | 2022-08-23 | [facility] | 33.4 | (missing) | (missing) | | (unavailable | 17:45:08 | [facility] | | | | + + + +--------+ + + + + | Result panel 47 | + + + + + +--------+ + + | | 2022-08-23 | [facility] | 14.2 | (missing) | (missing) | | (unavailable | 17:45:08 | [facility] | | | | + + + +--------+ + + + + | Result panel 48 | + + + + + +-------+ + + | | 2022-08-23 | [facility] | 260 | (missing) | (missing) | | (unavailable | 17:45:08 | [facility] | | | | + + + +-------+ + + + + | Result panel 49 | + + + + + +--------+ + + | | 2022-08-23 | [facility] | 64.6 | (missing) | (missing) | | (unavailable | 17:45:08 | [facility] | | | | + + + +--------+ + + + + | Result panel 50 | + + + + + +--------+ + + | | 2022-08-23 | [facility] | 26.6 | (missing) | (missing) | | (unavailable | 17:45:08 | [facility] | | | | + + + +--------+ + + + + | Result panel 51 | + + + + + +-------+ + + | | 2022-08-23 | [facility] | 7.0 | (missing) | (missing) | | (unavailable | 17:45:08 | [facility] | | | | + + + +-------+ + + + + | Result panel 52 | + + + + + +-------+ + + | | 2022-08-23 | [facility] | 1.0 | (missing) | (missing) | | (unavailable | 17:45:08 | [facility] | | | | + + + +-------+ + + + + | Result panel 53 | + + + + + +-------+ + + | | 2022-08-23 | [facility] | 0.8 | (missing) | (missing) | | (unavailable | 17:45:08 | [facility] | | | | + + + +-------+ + + + + | Result panel 54 | + + + + + +-------+---------+ + | | 2022-08-23 | [facility] | 140 | mg/dL | (missing) | | (unavailable | 17:45:08 | [facility] | | | | + + + +-------+---------+ + + + | Result panel 55 | + + + + + +------+---------+ + | | 2022-08-23 | [facility] | 17 | mg/dL | (missing) | | (unavailable | 17:45:08 | [facility] | | | | + + + +------+---------+ + + + | Result panel 56 | + + + + + +--------+---------+ + | | 2022-08-23 | [facility] | 1.00 | mg/dL | (missing) | | (unavailable | 17:45:08 | [facility] | | | | + + + +--------+---------+ + + + | Result panel 57 | + + + + + +------+ + + | | 2022-08-23 | [facility] | 65 | (missing) | (missing) | | (unavailable | 17:45:08 | [facility] | | | | + + + +------+ + + + + | Result panel 58 | + + + + + +---------+ + + | | 2022-08-23 | [facility] | 17.00 | (missing) | (missing) | | (unavailable | 17:45:08 | [facility] | | | | + + + +---------+ + + + + | Result panel 59 | + + + + + +-------+ + + | | 2022-08-23 | [facility] | 135 | (missing) | (missing) | | (unavailable | 17:45:08 | [facility] | | | | + + + +-------+ + + + + | Result panel 60 | + + + + + +-------+ + + | | 2022-08-23 | [facility] | 4.1 | (missing) | (missing) | | (unavailable | 17:45:08 | [facility] | | | | + + + +-------+ + + + + | Result panel 61 | + + + + + +------+ + + | | 2022-08-23 | [facility] | 99 | (missing) | (missing) | | (unavailable | 17:45:08 | [facility] | | | | + + + +------+ + + + + | Result panel 62 | + + + + + +------+ + + | | 2022-08-23 | [facility] | 28 | (missing) | (missing) | | (unavailable | 17:45:08 | [facility] | | | | + + + +------+ + + + + | Result panel 63 | + + + + + +--------+ + + | | 2022-08-23 | [facility] | 12.1 | (missing) | (missing) | | (unavailable | 17:45:08 | [facility] | | | | + + + +--------+ + + + + | Result panel 64 | + + + + + +-------+---------+ + | | 2022-08-23 | [facility] | 8.8 | mg/dL | (missing) | | (unavailable | 17:45:08 | [facility] | | | | + + + +-------+---------+ + + + | Result panel 65 | + + + + + +-------+---------+ + | | 2022-08-23 | [facility] | 1.6 | mg/dL | (missing) | | (unavailable | 17:45:08 | [facility] | | | | + + + +-------+---------+ + + + | Result panel 66 | + + + + + +-------+ + + | | 2022-08-23 | [facility] | 6.8 | (missing) | (missing) | | (unavailable | 17:45:08 | [facility] | | | | + + + +-------+ + + + + | Result panel 67 | + + + + + +-------+ + + | | 2022-08-23 | [facility] | 3.2 | (missing) | (missing) | | (unavailable | 17:45:08 | [facility] | | | | + + + +-------+ + + + + | Result panel 68 | + + + + + +-------+ + + | | 2022-08-23 | [facility] | 3.6 | (missing) | (missing) | | (unavailable | 17:45:08 | [facility] | | | | + + + +-------+ + + + + | Result panel 69 | + + + + + +--------+ + + | | 2022-08-23 | [facility] | 0.89 | (missing) | (missing) | | (unavailable | 17:45:08 | [facility] | | | | + + + +--------+ + + + + | Result panel 70 | + + + + + +-------+ + + | | 2022-08-23 | [facility] | 0.2 | (missing) | (missing) | | (unavailable | 17:45:08 | [facility] | | | | + + + +-------+ + + + + | Result panel 71 | + + + + + +------+ + + | | 2022-08-23 | [facility] | 17 | (missing) | (missing) | | (unavailable | 17:45:08 | [facility] | | | | + + + +------+ + + + + | Result panel 72 | + + + + + +------+ + + | | 2022-08-23 | [facility] | 39 | (missing) | (missing) | | (unavailable | 17:45:08 | [facility] | | | | + + + +------+ + + + + | Result panel 73 | + + + + + +------+ + + | | 2022-08-23 | [facility] | 86 | (missing) | (missing) | | (unavailable | 17:45:08 | [facility] | | | | + + + +------+ + + + + | Result panel 74 | + + + + + +-------+ + + | | 2022-08-23 | [facility] | 8.4 | (missing) | (missing) | | (unavailable | 17:45:08 | [facility] | | | | + + + +-------+ + + + + | Result panel 75 | + + + + + + + + + | | 2022-08-23 | [facility] | NEGATIVE | (missing) | (missing) | | (unavailable | 17:52:08 | [facility] | | | | + + + + + + + + + | Result panel 76 | + + + + + + + + + | | 2022-08-23 | [facility] | NEGATIVE | (missing) | (missing) | | (unavailable | 17:52:08 | [facility] | | | | + + + + + + + + + | Result panel 77 | + + + + + + + + + | | 2022-08-23 | [facility] | NEGATIVE | (missing) | (missing) | | (unavailable | 17:52:08 | [facility] | | | | + + + + + + + + + | Result panel 78 | + + + + + + + + + | | 2022-08-23 | [facility] | NEGATIVE | (missing) | (missing) | | (unavailable | 17:52:08 | [facility] | | | | + + + + + + + + + | Result panel 79 | + + + + + + + + + | | 2023-01-13 | [facility] | NEGATIVE | (missing) | (missing) | | (unavailable | 14:55:07 | [facility] | | | | + + + + + + + + + | Result panel 80 | + + + + + +--------+ + + | | 2023-01-13 | [facility] | 13.5 | (missing) | (missing) | | (unavailable | 15:24:07 | [facility] | | | | + + + +--------+ + + + + | Result panel 81 | + + + + + +--------+ + + | | 2023-01-13 | [facility] | 4.31 | (missing) | (missing) | | (unavailable | 15:24:07 | [facility] | | | | + + + +--------+ + + + + | Result panel 82 | + + + + + +--------+ + + | | 2023-01-13 | [facility] | 14.1 | (missing) | (missing) | | (unavailable | 15:24:07 | [facility] | | | | + + + +--------+ + + + + | Result panel 83 | + + + + + +--------+ + + | | 2023-01-13 | [facility] | 42.8 | (missing) | (missing) | | (unavailable | 15:24:07 | [facility] | | | | + + + +--------+ + + + + | Result panel 84 | + + + + + +--------+ + + | | 2023-01-13 | [facility] | 99.5 | (missing) | (missing) | | (unavailable | 15:24:07 | [facility] | | | | + + + +--------+ + + + + | Result panel 85 | + + + + + +--------+ + + | | 2023-01-13 | [facility] | 32.8 | (missing) | (missing) | | (unavailable | 15:24:07 | [facility] | | | | + + + +--------+ + + + + | Result panel 86 | + + + + + +--------+ + + | | 2023-01-13 | [facility] | 33.0 | (missing) | (missing) | | (unavailable | 15:24:07 | [facility] | | | | + + + +--------+ + + + + | Result panel 87 | + + + + + +--------+ + + | | 2023-01-13 | [facility] | 14.3 | (missing) | (missing) | | (unavailable | 15:24:07 | [facility] | | | | + + + +--------+ + + + + | Result panel 88 | + + + + + +-------+ + + | | 2023-01-13 | [facility] | 256 | (missing) | (missing) | | (unavailable | 15:24:07 | [facility] | | | | + + + +-------+ + + + + | Result panel 89 | + + + + + +------+ + + | | 2023-01-13 | [facility] | 68 | (missing) | (missing) | | (unavailable | 15:24:07 | [facility] | | | | + + + +------+ + + + + | Result panel 90 | + + + + + +------+ + + | | 2023-01-13 | [facility] | 22 | (missing) | (missing) | | (unavailable | 15:24:07 | [facility] | | | | + + + +------+ + + + + | Result panel 91 | + + + + + +-----+ + + | | 2023-01-13 | [facility] | 4 | (missing) | (missing) | | (unavailable | 15:24:07 | [facility] | | | | + + + +-----+ + + + + | Result panel 92 | + + + + + +-----+ + + | | 2023-01-13 | [facility] | 6 | (missing) | (missing) | | (unavailable | 15:24:07 | [facility] | | | | + + + +-----+ + + + + | Result panel 93 | + + + + + +-------+---------+ + | | 2023-01-13 | [facility] | 136 | mg/dL | (missing) | | (unavailable | 15:24:07 | [facility] | | | | + + + +-------+---------+ + + + | Result panel 94 | + + + + + +------+---------+ + | | 2023-01-13 | [facility] | 15 | mg/dL | (missing) | | (unavailable | 15:24:07 | [facility] | | | | + + + +------+---------+ + + + | Result panel 95 | + + + + + +--------+---------+ + | | 2023-01-13 | [facility] | 0.96 | mg/dL | (missing) | | (unavailable | 15:24:07 | [facility] | | | | + + + +--------+---------+ + + + | Result panel 96 | + + + + + +------+ + + | | 2023-01-13 | [facility] | 68 | (missing) | (missing) | | (unavailable | 15:24:07 | [facility] | | | | + + + +------+ + + + + | Result panel 97 | + + + + + +---------+ + + | | 2023-01-13 | [facility] | 15.62 | (missing) | (missing) | | (unavailable | 15:24:07 | [facility] | | | | + + + +---------+ + + + + | Result panel 98 | + + + + + +-------+ + + | | 2023-01-13 | [facility] | 139 | (missing) | (missing) | | (unavailable | 15::07 | [facility] | | | | + + + +-------+ + + + + | Result panel 99 | + + + + + +-------+ + + | | 2023-01-13 | [facility] | 4.3 | (missing) | (missing) | | (unavailable | 15:24:07 | [facility] | | | | + + + +-------+ + + + + | Result panel 100 | + + + + + +-------+ + + | | 2023-01-13 | [facility] | 104 | (missing) | (missing) | | (unavailable | 15::07 | [facility] | | | | + + + +-------+ + + + + | Result panel 101 | + + + + + +------+ + + | | 2023-01-13 | [facility] | 26 | (missing) | (missing) | | (unavailable | 15:24:07 | [facility] | | | | + + + +------+ + + + + | Result panel 102 | + + + + + +--------+ + + | | 2023-01-13 | [facility] | 13.3 | (missing) | (missing) | | (unavailable | 15:24:07 | [facility] | | | | + + + +--------+ + + + + | Result panel 103 | + + + + + +-------+---------+ + | | 2023-01-13 | [facility] | 8.9 | mg/dL | (missing) | | (unavailable | 15:24:07 | [facility] | | | | + + + +-------+---------+ + + + | Result panel 104 | + + + + + +-------+ + + | | 2023-01-13 | [facility] | 7.6 | (missing) | (missing) | | (unavailable | 15:24:07 | [facility] | | | | + + + +-------+ + + + + | Result panel 105 | + + + + + +-------+ + + | | 2023-01-13 | [facility] | 3.6 | (missing) | (missing) | | (unavailable | 15:24:07 | [facility] | | | | + + + +-------+ + + + + | Result panel 106 | + + + + + +-------+ + + | | 2023-01-13 | [facility] | 4.0 | (missing) | (missing) | | (unavailable | 15:24:07 | [facility] | | | | + + + +-------+ + + + + | Result panel 107 | + + + + + +--------+ + + | | 2023-01-13 | [facility] | 0.90 | (missing) | (missing) | | (unavailable | 15:24:07 | [facility] | | | | + + + +--------+ + + + + | Result panel 108 | + + + + + +-------+ + + | | 2023-01-13 | [facility] | 0.3 | (missing) | (missing) | | (unavailable | 15:24:07 | [facility] | | | | + + + +-------+ + + + + | Result panel 109 | + + + + + +------+ + + | | 2023-01-13 | [facility] | 61 | (missing) | (missing) | | (unavailable | 15:24:07 | [facility] | | | | + + + +------+ + + + + | Result panel 110 | + + + + + +------+ + + | | 2023-01-13 | [facility] | 75 | (missing) | (missing) | | (unavailable | 15::07 | [facility] | | | | + + + +------+ + + + + | Result panel 111 | + + + + + +-------+ + + | | 2023-01-13 | [facility] | 101 | (missing) | (missing) | | (unavailable | 15:24:07 | [facility] | | | | + + + +-------+ + + + + | Result panel 112 | + + + + + +--------+ + + | | 2023-03-13 | [facility] | 11.5 | (missing) | (missing) | | (unavailable | 15:36:07 | [facility] | | | | + + + +--------+ + + + + | Result panel 113 | + + + + + +--------+ + + | | 2023-03-13 | [facility] | 82.5 | (missing) | (missing) | | (unavailable | 15:36:07 | [facility] | | | | + + + +--------+ + + + + | Result panel 114 | + + + + + +--------+ + + | | 2023-03-13 | [facility] | 12.2 | (missing) | (missing) | | (unavailable | 15:36:07 | [facility] | | | | + + + +--------+ + + + + | Result panel 115 | + + + + + +-------+ + + | | 2023-03-13 | [facility] | 4.4 | (missing) | (missing) | | (unavailable | 15:36:07 | [facility] | | | | + + + +-------+ + + + + | Result panel 116 | + + + + + +-------+ + + | | 2023-03-13 | [facility] | 0.3 | (missing) | (missing) | | (unavailable | 15:36:07 | [facility] | | | | + + + +-------+ + + + + | Result panel 117 | + + + + + +-------+ + + | | 2023-03-13 | [facility] | 0.6 | (missing) | (missing) | | (unavailable | 15:36:07 | [facility] | | | | + + + +-------+ + + + + | Result panel 118 | + + + + + +-------+---------+ + | | 2023-03-13 | [facility] | 189 | mg/dL | (missing) | | (unavailable | 15:36:07 | [facility] | | | | + + + +-------+---------+ + + + | Result panel 119 | + + + + + +------+---------+ + | | 2023-03-13 | [facility] | 17 | mg/dL | (missing) | | (unavailable | 15:36:07 | [facility] | | | | + + + +------+---------+ + + + | Result panel 120 | + + + + + +--------+---------+ + | | 2023-03-13 | [facility] | 1.52 | mg/dL | (missing) | | (unavailable | 15:36:07 | [facility] | | | | + + + +--------+---------+ + + + | Result panel 121 | + + + + + +------+ + + | | 2023-03-13 | [facility] | 39 | (missing) | (missing) | | (unavailable | 15:36:07 | [facility] | | | | + + + +------+ + + + + | Result panel 122 | + + + + + +---------+ + + | | 2023-03-13 | [facility] | 11.18 | (missing) | (missing) | | (unavailable | 15:36:07 | [facility] | | | | + + + +---------+ + + + + | Result panel 123 | + + + + + +--------+ + + | | 2023-03-13 | [facility] | 4.04 | (missing) | (missing) | | (unavailable | 15:36:07 | [facility] | | | + + + +--------+ + + + + | Result panel 124 | + + + + + +-------+ + + | | 2023-03-13 | [facility] | 143 | (missing) | (missing) | | (unavailable | 15:36:07 | [facility] | | | + + + +-------+ + + + + | Result panel 125 | + + + + + +-------+ + + | | 2023-03-13 | [facility] | 4.2 | (missing) | (missing) | | (unavailable | 15:36:07 | [facility] | | | | + + + +-------+ + + + + | Result panel 126 | + + + + + +-------+ + + | | 2023-03-13 | [facility] | 106 | (missing) | (missing) | | (unavailable | 15:36:07 | [facility] | | | | + + + +-------+ + + + + | Result panel 127 | + + + + + +------+ + + | | 2023-03-13 | [facility] | 25 | (missing) | (missing) | | (unavailable | 15:36:07 | [facility] | | | | + + + +------+ + + + + | Result panel 128 | + + + + + +--------+ + + | | 2023-03-13 | [facility] | 16.2 | (missing) | (missing) | | (unavailable | 15:36:07 | [facility] | | | + + + +--------+ + + + + | Result panel 129 | + + + + + +-------+---------+ + | | 2023-03-13 | [facility] | 8.4 | mg/dL | (missing) | | (unavailable | 15:36:07 | [facility] | | | | + + + +-------+---------+ + + + | Result panel 130 | + + + + + +-------+ + + | | 2023-03-13 | [facility] | 7.2 | (missing) | (missing) | | (unavailable | 15:36:07 | [facility] | | | | + + + +-------+ + + + + | Result panel 131 | + + + + + +-------+ + + | | 2023-03-13 | [facility] | 3.4 | (missing) | (missing) | | (unavailable | 15:36:07 | [facility] | | | | + + + +-------+ + + + + | Result panel 132 | + + + + + +-------+ + + | | 2023-03-13 | [facility] | 3.8 | (missing) | (missing) | | (unavailable | 15:36:07 | [facility] | | | | + + + +-------+ + + + + | Result panel 133 | + + + + + +--------+ + + | | 2023-03-13 | [facility] | 0.89 | (missing) | (missing) | | (unavailable | 15:36:07 | [facility] | | | | + + + +--------+ + + + + | Result panel 134 | + + + + + +--------+ + + | | 2023-03-13 | [facility] | 13.5 | (missing) | (missing) | | (unavailable | 15:36:07 | [facility] | | | | + + + +--------+ + + + + | Result panel 135 | + + + + + +-------+ + + | | 2023-03-13 | [facility] | 0.3 | (missing) | (missing) | | (unavailable | 15:36:07 | [facility] | | | | + + + +-------+ + + + + | Result panel 136 | + + + + + +------+ + + | | 2023-03-13 | [facility] | 82 | (missing) | (missing) | | (unavailable | 15:36:07 | [facility] | | | | + + + +------+ + + + + | Result panel 137 | + + + + + +-------+ + + | | 2023-03-13 | [facility] | 132 | (missing) | (missing) | | (unavailable | 15:36:07 | [facility] | | | | + + + +-------+ + + + + | Result panel 138 | + + + + + +------+ + + | | 2023-03-13 | [facility] | 98 | (missing) | (missing) | | (unavailable | 15:36:07 | [facility] | | | | + + + +------+ + + + + | Result panel 139 | + + + + + +-------+ + + | | 2023-03-13 | [facility] | 9.1 | (missing) | (missing) | | (unavailable | 15:36:07 | [facility] | | | | + + + +-------+ + + + + | Result panel 140 | + + + + + +--------+ + + | | 2023-03-13 | [facility] | 41.2 | (missing) | (missing) | | (unavailable | 15:36:07 | [facility] | | | | + + + +--------+ + + + + | Result panel 141 | + + + + + +---------+ + + | | 2023-03-13 | [facility] | 101.8 | (missing) | (missing) | | (unavailable | 15:36:07 | [facility] | | | | + + + +---------+ + + + + | Result panel 142 | + + + + + +--------+ + + | | 2023-03-13 | [facility] | 33.5 | (missing) | (missing) | | (unavailable | 15:36:07 | [facility] | | | | + + + +--------+ + + + + | Result panel 143 | + + + + + +--------+ + + | | 2023-03-13 | [facility] | 32.9 | (missing) | (missing) | | (unavailable | 15:36:07 | [facility] | | | | + + + +--------+ + + + + | Result panel 144 | + + + + + +--------+ + + | | 2023-03-13 | [facility] | 14.6 | (missing) | (missing) | | (unavailable | 15:36:07 | [facility] | | | | + + + +--------+ + + + + | Result panel 145 | + + + + + +-------+ + + | | 2023-03-13 | [facility] | 231 | (missing) | (missing) | | (unavailable | 15:36:07 | [facility] | | | | + + + +-------+ + + Social History No information. Vital Signs + + + +---------+ | date | measurement | value | units | + + + +---------+ | 2022-07-08 00:00 | BMI | 45.3 | kg/m2 | + + + +---------+ | 2022-07-08 00:00 | BP_diastolic | 72 | mmHg | + + + +---------+ | 2022-07-08 00:00 | BP_systolic | 107 | mmHg | + + + +---------+ | 2022-07-08 00:00 | heart_rate | 73 | /min | + + + +---------+ | 2022-07-08 00:00 | height_metric | 167.64 | cm | + + + +---------+ | 2022-07-08 00:00 | height_standard | 66 | in | + + + +---------+ | 2022-07-08 00:00 | o2_saturation | 96 | % | + + + +---------+ | 2022-07-08 00:00 | respiration_rate | 16 | /min | + + + +---------+ | 2022-07-08 00:00 | temperature_metric | 36.44 | C | | | | | | + + + +---------+ | 2022-07-08 00:00 | | 97.6 | F | | | temperature_standar | | | | | d | | | + + + +---------+ | 2022-07-08 00:00 | weight_metric | 127.43 | kg | + + + +---------+ | 2022-07-08 00:00 | weight_standard | 280.94 | lb | + + + +---------+ | 2022-08-23 00:00 | BMI | 45.3 | kg/m2 | + + + +---------+ | 2022-08-23 00:00 | BP_diastolic | 78 | mmHg | + + + +---------+ | 2022-08-23 00:00 | BP_systolic | 167 | mmHg | + + + +---------+ | 2022-08-23 00:00 | heart_rate | 83 | /min | + + + +---------+ | 2022-08-23 00:00 | height_metric | 167.64 | cm | + + + +---------+ | 2022-08-23 00:00 | height_standard | 66 | in | + + + +---------+ | 2022-08-23 00:00 | o2_saturation | 97 | % | + + + +---------+ | 2022-08-23 00:00 | respiration_rate | 15 | /min | + + + +---------+ | 2022-08-23 00:00 | temperature_metric | 36.67 | C | | | | | | + + + +---------+ | 2022-08-23 00:00 | | 98 | F | | | temperature_standar | | | | | d | | | + + + +---------+ | 2022-08-23 00:00 | weight_metric | 127.43 | kg | + + + +---------+ | 2022-08-23 00:00 | weight_standard | 280.94 | lb | + + + +---------+ | 2023-01-13 00:00 | BMI | 48.4 | kg/m2 | + + + +---------+ | 2023-01-13 00:00 | BP_diastolic | 74 | mmHg | + + + +---------+ | 2023-01-13 00:00 | BP_systolic | 134 | mmHg | + + + +---------+ | 2023-01-13 00:00 | heart_rate | 86 | /min | + + + +---------+ | 2023-01-13 00:00 | height_metric | 167.64 | cm | + + + +---------+ | 2023-01-13 00:00 | height_standard | 66 | in | + + + +---------+ | 2023-01-13 00:00 | o2_saturation | 95 | % | + + + +---------+ | 2023-01-13 00:00 | respiration_rate | 20 | /min | + + + +---------+ | 2023-01-13 00:00 | temperature_metric | 37.11 | C | | | | | | + + + +---------+ | 2023-01-13 00:00 | | 98.8 | F | | | temperature_standar | | | | | d | | | + + + +---------+ | 2023-01-13 00:00 | weight_metric | 136.08 | kg | + + + +---------+ | 2023-01-13 00:00 | weight_standard | 300 | lb | + + + +---------+ | 2023-01-13 00:00 | weight_standard | 300.01 | lb | + + + +---------+ | 2023-03-13 00:00 | BMI | 48.6 | kg/m2 | + + + +---------+ | 2023-03-13 00:00 | BP_diastolic | 60 | mmHg | + + + +---------+ | 2023-03-13 00:00 | BP_systolic | 138 | mmHg | + + + +---------+ | 2023-03-13 00:00 | heart_rate | 87 | /min | + + + +---------+ | 2023-03-13 00:00 | height_metric | 167.64 | cm | + + + +---------+ | 2023-03-13 00:00 | height_standard | 66 | in | + + + +---------+ | 2023-03-13 00:00 | o2_saturation | 95 | % | + + + +---------+ | 2023-03-13 00:00 | respiration_rate | 19 | /min | + + + +---------+ | 2023-03-13 00:00 | temperature_metric | 37 | C | | | | | | + + + +---------+ | 2023-03-13 00:00 | | 98.6 | F | | | temperature_standar | | | | | d | | | + + + +---------+ | 2023-03-13 00:00 | weight_metric | 136.5 | kg | + + + +---------+ | 2023-03-13 00:00 | weight_standard | 300.93 | lb | + + + +---------+ | 2023-03-13 00:00 | weight_standard | 300.94 | lb | + + + +---------+"
--- OUTSIDE RECORDS SUMMARY | ~2023-05-03 | XMS | Continuity of Care Document ---
Demographics + + + | Address | [address] | | | [place] [address] | + + + | Preferred Language | Unknown | + + + | Marital Status | Never | + + + | Rastafari Affiliation | Unknown | + + + | Race | White | + + + | Ethnic Group | Not or | + + + Author + + + | Author | [facility] | + + + | Organization | [facility] | + + + | Address | [address] | | | [place] [address] | + + + | Phone | | + + + Care Team Providers + + + + | Care Family Psychologist Name | Role | Phone | + [...] + | 2021-01-12 00:00 | NAPROXEN | [facility] | + + + + | 2021-01-12 00:00 | NAPROXEN | [facility] | + + + + | 2022-07-08 00:00 | Budesonide/Formoterol | [facility] | | | Fumarate | | + + + + | 2022-08-25 00:00 | Budesonide/Formoterol | [facility] | | | Fumarate | | + + + + | 2023-01-13 00:00 | Budesonide/Formoterol | [facility] | | | Fumarate | | + + + + | 2023-03-13 00:00 | Budesonide/Formoterol | [facility] | | | Fumarate | | + + + + | 2022-08-23 00:00 | IPRATROPIUM/ALBUTEROL | [facility] | | | SULFATE | | + + + + | 2022-08-23 00:00 | IPRATROPIUM/ALBUTEROL | [facility] | | | SULFATE | | + + + + | 2023-03-13 00:00 | IPRATROPIUM/ALBUTEROL | [facility] | | | SULFATE | | + + + + | 2023-03-13 00:00 | MONTELUKAST SODIUM | [facility] | + + + + | 2022-07-08 00:00 | TIOTROPIUM BROMIDE | [facility] | + + + + | 2022-08-25 00:00 | TIOTROPIUM BROMIDE | [facility] | + + + + | 2023-01-13 00:00 | TIOTROPIUM BROMIDE | [facility] | + + + + | 2023-03-13 00:00 | TIOTROPIUM BROMIDE | [facility] | + + + + | 2021-01-12 00:00 | CEFTRIAXONE | [facility] | | | NA/DEXTROSE,ISO | | + + + + | 2021-01-12 00:00 | CEFTRIAXONE | [facility] | | | NA/DEXTROSE,ISO | | + + + + | 2023-01-13 00:00 | | [facility] | | | Fluticasone/Umeclidin/Vilan | | | | ter | | + + + + | 2023-03-13 00:00 | | [facility] | | | Fluticasone/Umeclidin/Vilan | | | | ter | | + + + + | 2021-01-10 00:00 | CEPHALEXIN | [facility] | + + + + | 2021-01-10 00:00 | CEPHALEXIN | [facility] | + + + + | 2023-01-13 00:00 | predniSONE | [facility] | + + + + | 2023-03-13 00:00 | predniSONE | [facility] | + + + + | 2019-12-13 00:00 | AZITHROMYCIN | [facility] | + + + + | 2019-12-13 00:00 | AZITHROMYCIN | [facility] | + + + + | 2023-01-13 00:00 | LEVOFLOXACIN | [facility] | + + + + | 2021-12-24 00:00 | ONDANSETRON | [facility] | + + + + | 2021-12-24 00:00 | ONDANSETRON | [facility] | + + + + | 2019-12-13 00:00 | predniSONE | [facility] | + + + + | 2019-12-13 00:00 | predniSONE | [facility] | + + + + | 2022-07-08 00:00 | predniSONE | [facility] | + + + + | 2022-07-08 00:00 | predniSONE | [facility] | + + + + | 2022-07-08 00:00 | LISINOPRIL | [facility] | + + + + | 2022-08-25 00:00 | LISINOPRIL | [facility] | + + + + | 2023-01-13 00:00 | LISINOPRIL | [facility] | + + + + | 2023-03-13 00:00 | LISINOPRIL | [facility] | + + + + | 2022-08-23 00:00 | AZITHROMYCIN | [facility] | + + + + | 2022-08-23 00:00 | AZITHROMYCIN | [facility] | + + + + | 2023-03-13 00:00 | AZITHROMYCIN | [facility] | + + + + | 2021-01-10 00:00 | | [facility] | | | SULFAMETHOXAZOLE/TRIMETHOPR | | | | IM DS | | + + + + | 2021-01-10 00:00 | | [facility] | | | SULFAMETHOXAZOLE/TRIMETHOPR | | | | IM DS | | + + + + | 2021-01-14 00:00 | HYDROCODONE | [facility] | | | BIT/ACETAMINOPHEN | | + + + + | 2021-01-14 00:00 | HYDROCODONE | [facility] | | | BIT/ACETAMINOPHEN | | + + + + | 2021-01-12 00:00 | HYDROCODONE | [facility] | | | BIT/ACETAMINOPHEN | | + + + + | 2021-01-12 00:00 | HYDROCODONE | [facility] | | | BIT/ACETAMINOPHEN | | + + + + | 2021-01-10 00:00 | HYDROCODONE | [facility] | | | BIT/ACETAMINOPHEN | | + + + + | 2021-01-10 00:00 | HYDROCODONE | [facility] | | | BIT/ACETAMINOPHEN | | + + + + | 2021-08-22 00:00 | HYDROCODONE | [facility] | | | BIT/ACETAMINOPHEN | | + + + + | 2021-08-22 00:00 | HYDROCODONE | [facility] | | | BIT/ACETAMINOPHEN | | + + + + | 2022-07-08 00:00 | ALBUTEROL SULFATE | [facility] | + + + + | 2022-08-25 00:00 | ALBUTEROL SULFATE | [facility] | + + + + | 2023-01-13 00:00 | ALBUTEROL SULFATE | [facility] | + + + + | 2023-03-13 00:00 | ALBUTEROL SULFATE | [facility] | + + + + Problems + + + + | date | description | facility | + + + + | 2019-02-03 00:00 | Sprain of left ankle | [facility] | + + + + | 2019-02-03 00:00 | Sprain of left ankle | [facility] | + + + + | 2021-01-10 00:00 | Cellulitis of left lower | [facility] | | | extremity | | + + + + | 2021-01-10 00:00 | Cellulitis of left lower | [facility] | | | extremity | | + + + + | 2021-01-10 00:00 | Prepatellar bursitis of | [facility] | | | left knee | | + + + + | 2021-01-10 00:00 | Prepatellar bursitis of | [facility] | | | left knee | | + + + + | 2021-01-14 00:00 | Cellulitis due to | [facility] | | | methicillin-resistant | | | | Staphylococcus aureus | | | | (MRSA) | | + + + + | 2021-01-14 00:00 | Cellulitis due to | [facility] | | | methicillin-resistant | | | | Staphylococcus aureus | | | | (MRSA) | | + + + + | 2021-08-22 00:00 | Abscess of right axilla | [facility] | + + + + | 2021-08-22 00:00 | Abscess of right axilla | [facility] | + + + + | 2021-11-05 00:00 | Calculus of kidney | [facility] | + + + + | 2021-11-05 00:00 | Calculus of kidney | [facility] | + + + + | 2021-12-24 00:00 | Left flank pain | [facility] | + + + + | 2021-12-24 00:00 | Left flank pain | [facility] | + + + + | 2021-12-24 00:00 | Status post laser | [facility] | | | lithotripsy of ureteral | | | | calculus | | + + + + | 2021-12-24 00:00 | Status post laser | [facility] | | | lithotripsy of ureteral | | | | calculus | | + + + + | 2022-07-08 00:00 | Acute exacerbation of | [facility] | | | chronic obstructive | | | | pulmonary disease | | + + + + | 2022-07-08 00:00 | Acute exacerbation of | [facility] | | | chronic obstructive | | [...] + | 2023-01-13 00:00 | Bronchitis | [facility] | + + + + | 2023-01-13 [...] + + + | 2023-01-13 11:47 | 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
--- OUTSIDE RECORDS SUMMARY | ~2023-05-03 | XMS | Continuity of Care Document ---
Demographics + + + | Address | [address] | | | [place] [address] | + + + | Preferred Language | Unknown | + + + | Marital Status | Never | + + + | Buddhism Affiliation | Unknown | + + + | Race | White | + + + | Ethnic Group | Not or | + + + Author + + + | Author | [place] | + + + | Organization | [place] | + + + | Address | [address] | | | [place] [address] | + + + | Phone | | + + + Care Team Providers + + + + | Care Sql Developer Dba Name | Role | Phone | + [...] + | 2021-01-12 00:00 | NAPROXEN | [facility] | + + + + | 2021-01-12 00:00 | NAPROXEN | [facility] | + + + + | 2022-07-08 00:00 | Budesonide/Formoterol | [facility] | | | Fumarate | | + + + + | 2022-08-25 00:00 | Budesonide/Formoterol | [facility] | | | Fumarate | | + + + + | 2023-01-13 00:00 | Budesonide/Formoterol | [facility] | | | Fumarate | | + + + + | 2023-03-13 00:00 | Budesonide/Formoterol | [facility] | | | Fumarate | | + + + + | 2022-08-23 00:00 | IPRATROPIUM/ALBUTEROL | [facility] | | | SULFATE | | + + + + | 2022-08-23 00:00 | IPRATROPIUM/ALBUTEROL | [facility] | | | SULFATE | | + + + + | 2023-03-13 00:00 | IPRATROPIUM/ALBUTEROL | [facility] | | | SULFATE | | + + + + | 2023-03-13 00:00 | MONTELUKAST SODIUM | [facility] | + + + + | 2022-07-08 00:00 | TIOTROPIUM BROMIDE | [facility] | + + + + | 2022-08-25 00:00 | TIOTROPIUM BROMIDE | [facility] | + + + + | 2023-01-13 00:00 | TIOTROPIUM BROMIDE | [facility] | + + + + | 2023-03-13 00:00 | TIOTROPIUM BROMIDE | [facility] | + + + + | 2021-01-12 00:00 | CEFTRIAXONE | [facility] | | | NA/DEXTROSE,ISO | | + + + + | 2021-01-12 00:00 | CEFTRIAXONE | [facility] | | | NA/DEXTROSE,ISO | | + + + + | 2023-01-13 00:00 | | [facility] | | | Fluticasone/Umeclidin/Vilan | | | | ter | | + + + + | 2023-03-13 00:00 | | [facility] | | | Fluticasone/Umeclidin/Vilan | | | | ter | | + + + + | 2021-01-10 00:00 | CEPHALEXIN | [facility] | + + + + | 2021-01-10 00:00 | CEPHALEXIN | [facility] | + + + + | 2023-01-13 00:00 | predniSONE | [facility] | + + + + | 2023-03-13 00:00 | predniSONE | [facility] | + + + + | 2019-12-13 00:00 | AZITHROMYCIN | [facility] | + + + + | 2019-12-13 00:00 | AZITHROMYCIN | [facility] | + + + + | 2023-01-13 00:00 | LEVOFLOXACIN | [facility] | + + + + | 2021-12-24 00:00 | ONDANSETRON | [facility] | + + + + | 2021-12-24 00:00 | ONDANSETRON | [facility] | + + + + | 2019-12-13 00:00 | predniSONE | [facility] | + + + + | 2019-12-13 00:00 | predniSONE | [facility] | + + + + | 2022-07-08 00:00 | predniSONE | [facility] | + + + + | 2022-07-08 00:00 | predniSONE | [facility] | + + + + | 2022-07-08 00:00 | LISINOPRIL | [facility] | + + + + | 2022-08-25 00:00 | LISINOPRIL | [facility] | + + + + | 2023-01-13 00:00 | LISINOPRIL | [facility] | + + + + | 2023-03-13 00:00 | LISINOPRIL | [facility] | + + + + | 2022-08-23 00:00 | AZITHROMYCIN | [facility] | + + + + | 2022-08-23 00:00 | AZITHROMYCIN | [facility] | + + + + | 2023-03-13 00:00 | AZITHROMYCIN | [facility] | + + + + | 2021-01-10 00:00 | | [facility] | | | SULFAMETHOXAZOLE/TRIMETHOPR | | | | IM DS | | + + + + | 2021-01-10 00:00 | | [facility] | | | SULFAMETHOXAZOLE/TRIMETHOPR | | | | IM DS | | + + + + | 2021-01-14 00:00 | HYDROCODONE | [facility] | | | BIT/ACETAMINOPHEN | | + + + + | 2021-01-14 00:00 | HYDROCODONE | [facility] | | | BIT/ACETAMINOPHEN | | + + + + | 2021-01-12 00:00 | HYDROCODONE | [facility] | | | BIT/ACETAMINOPHEN | | + + + + | 2021-01-12 00:00 | HYDROCODONE | [facility] | | | BIT/ACETAMINOPHEN | | + + + + | 2021-01-10 00:00 | HYDROCODONE | [facility] | | | BIT/ACETAMINOPHEN | | + + + + | 2021-01-10 00:00 | HYDROCODONE | [facility] | | | BIT/ACETAMINOPHEN | | + + + + | 2021-08-22 00:00 | HYDROCODONE | [facility] | | | BIT/ACETAMINOPHEN | | + + + + | 2021-08-22 00:00 | HYDROCODONE | [facility] | | | BIT/ACETAMINOPHEN | | + + + + | 2022-07-08 00:00 | ALBUTEROL SULFATE | [facility] | + + + + | 2022-08-25 00:00 | ALBUTEROL SULFATE | [facility] | + + + + | 2023-01-13 00:00 | ALBUTEROL SULFATE | [facility] | + + + + | 2023-03-13 00:00 | ALBUTEROL SULFATE | [facility] | + + + + Problems + + + + | date | description | facility | + + + + | 2019-02-03 00:00 | Sprain of left ankle | [facility] | + + + + | 2019-02-03 00:00 | Sprain of left ankle | [facility] | + + + + | 2021-01-10 00:00 | Cellulitis of left lower | [facility] | | | extremity | | + + + + | 2021-01-10 00:00 | Cellulitis of left lower | [facility] | | | extremity | | + + + + | 2021-01-10 00:00 | Prepatellar bursitis of | [facility] | | | left knee | | + + + + | 2021-01-10 00:00 | Prepatellar bursitis of | [facility] | | | left knee | | + + + + | 2021-01-14 00:00 | Cellulitis due to | [facility] | | | methicillin-resistant | | | | Staphylococcus aureus | | | | (MRSA) | | + + + + | 2021-01-14 00:00 | Cellulitis due to | [facility] | | | methicillin-resistant | | | | Staphylococcus aureus | | | | (MRSA) | | + + + + | 2021-08-22 00:00 | Abscess of right axilla | [facility] | + + + + | 2021-08-22 00:00 | Abscess of right axilla | [facility] | + + + + | 2021-11-05 00:00 | Calculus of kidney | [facility] | + + + + | 2021-11-05 00:00 | Calculus of kidney | [facility] | + + + + | 2021-12-24 00:00 | Left flank pain | [facility] | + + + + | 2021-12-24 00:00 | Left flank pain | [facility] | + + + + | 2021-12-24 00:00 | Status post laser | [facility] | | | lithotripsy of ureteral | | | | calculus | | + + + + | 2021-12-24 00:00 | Status post laser | [facility] | | | lithotripsy of ureteral | | | | calculus | | + + + + | 2022-07-08 00:00 | Acute exacerbation of | [facility] | | | chronic obstructive | | | | pulmonary disease | | + + + + | 2022-07-08 00:00 | Acute exacerbation of | [facility] | | | chronic obstructive | | [...] + | 2023-01-13 00:00 | Bronchitis | [facility] | + + + + | 2023-01-13 [...] + + + | 2023-01-13 11:47 | MATHEMATICIAN (CURRENT) USE OF | [facility] | | | SYSTEMIC STEROIDS | | + + + + | 2023-01-13 11:47 | OTHER PENITENTIARY (CURRENT) | [facility] | | | DRUG THERAPY | | + + + + | 2023-01-13 11:47 | ALLERGY STATUS TO NARCOTIC | [facility] | | | AGENT STATUS | | + + + + | 2023-03-13 00:00 | Exacerbation of asthma | [facility] | + + + + | 2023-03-13 00:00 | Dyspnea | [facility] | + + + + | 2023-03-13 00:00 | Hypoxia | [facility] | + + + + | 2023-03-13 [...] + + | 2023-03-13 15:20 | OTHER PENITENTIARY (CURRENT) | [facility] | | | DRUG [...]
[~2023-05-03 09:59] MED LIST changes: +LEVOFLOXACIN750 MG PO; +PREDNISONE10 MG PO; +SINGULAIR10 MG PO; +TRELEGY ELLIPT1 EACH INH
[2023-05-03 10:43] LABS: EOSINOPHILS 0.9 % (0-6); HEMATOCRIT 39.7 % (35.0-50.0); HEMOGLOBIN 13.3 g/dL (12.0-18.0); LYMPHOCYTES 15.9 % (24-44); MCH 33.7 (27-36); MCHC 33.5 g/dl (30-36); MCV 100.7 fl (81-99); MONOCYTES 9.7 % (0-12); NEUTROPHILS 72.5 % (39-80); PLATELET COUNT 226 K/uL (140-440); RBC 3.95 M/ul (4.3-5.7); RDW 14.2 (10.5-15.0)
[2023-05-03 10:57] LABS: ALBUMIN 3.4 g/dL (3.4-5.0); ALBUMIN/GLOBULIN RATIO 0.85 (1.1-2.4); BILIRUBIN, TOTAL 0.4 ng/dL (0.2-1.0); BUN/CREATININE RATIO 13.04 (6.0-28.6); CALCIUM 8.8 mg/dL (8.5-10.1); CREATININE, SERUM 0.92 mg/dL (0.55-1.02); MAGNESIUM 1.7 mg/dL (1.8-2.4); PROTEIN, TOTAL 7.4 g/dL (6.4-8.2)
[2023-05-03 13:08] LABS: INFLUENZA B NAA NEGATIVE (NEGATIVE); RESPIRATORY SYNCYTIAL VIR NAA NEGATIVE (NEGATIVE)
[2023-05-03] MEDS ORDERED: MELOXICAM15 MG PO (14:56)
[2023-05-03 14:58] VITALS: BP 219/86
[2023-05-03] MEDS ORDERED: IPRAT-ALBUT 0.5-3 ML INH (14:58)
--- NOTE | 2023-05-03 14:58 | NUR ---
PT ARRIVED BY STRETCHER FROM ER. REPORT RECIEVED FROM [facility]. PT TRANSFERSE SELF TO BED WITH 1 PERSON ASSIST. PT BECOMES VERY SHORT OF BREATH WITH TRANSFER AND VERY ANXIOUS AND RESTLESS. BLOOD PRESSURE TAKEN. 219/86, PT REPORTS SEVERE HEADACHE THAT IS WORSE WHEN THE BLOOD PRESSURE IS RUNNING. PT REPORTS 11/[address] HORTON CALLED AND ORDERS GIVEN FOR HYDRALZINE, SEE MAR FOR MEDICATION GIVEN. PT REPORTS HEADACHE IMPROVES TO 5/10 AFTER MEDICATION ADMINISTRATION. BLOOD PRESSURE RETAKEN AFTER 20 MINUTES AND NOW 236/96 (119). PT VERY ANXIOUS AND CRYING OUT FROM HEADACHE. PT REPORTS DIARRHEA FOR THE LAST 3 DAYS. PT REPORTS SHE HAS "AT LEAST 2 BEERS" A DAY AND "IF I DONT' HAVE THEM I GET JITTERY AND CRAZY." CIWA OF [address] HORTON UPDATED AND STATES TO GIVE LORAZAPAN AT THIS TIME FOR CIWA AND BLOOD PRESSURE. AND TO ASK PT HER INTENTIONS REGARDING CONTINUED ALCOHOCOL USE. PT REPORTS SHE WOULD LIKE TO KEEP DRINKING AND DOES NOT INTEND TO QUIT AT THIS TIME. DR. HORTON STATES TO ORDER BEERS WITH MEALS, PER PTS HOME USE. PT STATES SHE DRINKS 2-3 BEERS "OR MORE" WITH DINNER EVERY DAY. 2 BEERS ORDERED WITH DINNER. WITH CONVERSATION PT STATES "WELL I WAS DRINKING 180 PROOF AND I'VE BEEN TRYING TO GO OFF IT SLOWLY SO NOW I'M DRINKING 4 LOCO A NIGHT." LUNG SOUNDS CLEAR BUT FOR EXPIRATORY WHEEZE IN LLL. PT REMAINS ON 3L O2 BY NC TO MAINTAIN OXGYEN SATUARTIONS ABOVE 90%. RED RASH SEEN OVER CHIN, ARMS AND LOWER ABDOMEN. PT STATES THIS STARTED A FEW DAYS AGO, UNKNOWN CAUSE. PT DENIES TIME IN THE SUN, SUN BURN OR ALLERGINS. PT REPORTS COUGHING UP "DARK BLACK" SPUTUM. THIS HAS YET TO BE SEEN BY STAFF, TISSUES PROVIDED. PT ADVISED TO ALERT NURSING STAFF IF SHE HAS BLACK SPUTUM AGAIN. PT REQUESTS TO GO TO SLEEP. ATVIN VERY EFFCTIVE WITH BLOOD PRESSURE IMPROVING AND PT REPORTS HEADACHE IS NOW 4/10. RT TO BEDSIDE TO PLACE PT ON CPAP. PT RESTING WITH EYES CLOSED. RT AT BEDSIDE. PT REPORTS DIARRHEA FOR THE LAST 3 DAYS. PT REPORTS SHE HAS "AT LEAST 2 BEERS" A DAY AND "IF I DONT' HAVE THEM I GET JITTERY."
--- NOTE | 2023-05-03 15:46 | NUR ---
MED REC COMPLETE
[2023-05-03 15:52] VITALS: BP 188/92
--- NOTE | 2023-05-03 15:59 | NUR ---
PT RESTING WITH EYES CLOSED. CPAP IN PLACE. DR. HORTON TO BEDSIDE TO CHECK ON PT. CIWA SCORE NOW 6. PT REPORTS 6/10 HEADACHE THAT IS "MUCH BETTER." CPOX IN PLACE. PT MUCH CALMER AT THIS TIME, AWAKENS TO QUESTIONS BUT FALLS RIGHT BACK TO SLEEP. NO ADDITOINAL NEEDS AT THIS TIME. CALL LIGHT WITHIN REACH. BED RAILS UP. BED ALARM ON. HEAD OF BED AT 30 DEGREES
[2023-05-03 16:35] VITALS: BP 196/90
--- NOTE | 2023-05-03 17:03 | NUR ---
THIS RN TO ROOM TO CHECK ON PT. PT RESTING WITH EYES CLOSED. CPAP IN PLACE WITH 16/9 SETTINGS AND 35% FIO2. OXGYEN SATURATION 94%. BLOOD PRESSURE REASSESSED, REMAINS ELEVATED. DR HORTON UPDATED, ORDERS GIVEN TO GIVE ADDITIONAL DOSE OF HYDRALAZINE NOW. MEDICATION GIVEN. IV FLUISHED AND SALINE LOCKED. PT DOES NOT AWAKEN WITH CARES BUT DOES MOVE ARROUND BED OF HER OWN ACCORD. NO ADDITIONAL NEEDS AT THIS TIME. BED RAILS UP. CALL LIGHT WITHIN REACH. PT ALLOWED TO REST.
[2023-05-03 17:06] VITALS: BP 193/69
--- NOTE | 2023-05-03 17:43 | NUR ---
PT ADMITTED THIS SHIFT FORCOPD EXACERBATION. PT REMAINS IN BED THIS SHIFT. PT TOLERATING REGULAR DIET WITH MODERATE APPITITE, BEERS SERVED WTIH DINNER. PT REMAINS ON 3L O2 BY NC OR CPAP WITH 16/8 SETTINGS AND 35% FIO2. PT TOELRATES THESE WELL AND MAINTAINS OXYGEN SATURATIONS ABOVE 90%. NEBULIZER TREATMENTS GIVEN. LUGN SOUNDS CLEAR WITH OCCATIONAL WHEEZES HEARD. PT ON BASELINE OF 2L O2 BY NC. PT VERY AGITATED WITH TREMORS, ANXIET AND SEVERE HEADACHE UPON ARRIVAL TO MED/SURG. CIWA INITIATED WITH INITIAL SCORE OF 12, ATAVAN GIVEN WITH GOOD RESULTS. BLOOD PRESSURE ALSO REMAINS VERY ELEVATED. PRN MEDICATION GIVEN X2, AWARE. PT HAS YET TO VOID ON MED SURG. PT USES CALL LIGHT AND MAKES NEEDS KNOWN.
--- NOTE | 2023-05-03 18:06 | NUR ---
CPOX ALARMING, OXGYEN SATURATIONS 86%. PT AWOKEN AND REPORTS SHE IS READY FOR DINNER. RT TO BEDSIDE TO ADJUST CPAP SETTINGS AND MASK. NEW LARGER MASK PROVIDED FOR BETTER SEAL. 1 PERSON ASSIST UP TO RESTROOM TO VOID. ROBERT CARE PER PT. PT VOIDS 350 ML CONCENTRATED YELLOW URINE. PT BACK TO BED. VITAL SIGNS IMPROVING ALTHOUGH BLOOD PRESSURE REMAINS ELEVATED. PT REPORTS HEADACHE HAS RESOLVED. PT REPORTS FEEING "A LITTLE DIZZY." CPOX REMAINS IN PLACE OXGYEN SATRAUTION OF 93% ON 3L O2 BY NC. HEART RATE 90-110. CIWA SCORE OF 4 AT THIS TIME. BEER PROVIDED WITH DINNER. PT DENIES ADDITONAL REQUESTS OR COMPLAINTS. HEAD OF BED AT 46 DEGREES FOR DINNER. CALL LIGHT WITHIN REACH. BED RAILS UP.
[2023-05-03 18:15] VITALS: BP 187/73
--- NOTE | 2023-05-03 18:50 | NUR ---
PT CALL LIGHT ON. PT STATES SHE WOULD LIKE BIPAP BACK IN PLACE SO SHE CAN SLEEP. PT ASSISTED WITH PLACING BIPAP, PT TOLEARTES WELL. SETTINGS UNCHANGED. PT DENIES ADDITIONAL REQUESTS OR COMPLAINTS. CALL LIGHT WITHIN REACH. BED RAILS UP. BED ALARM ON.
--- NOTE | 2023-05-03 19:44 | NUR ---
RECEIVED REPORT FROM DAY SHIFT RN. PATIENT ASSISTED TO RB A 1PA. PATIENT WAS ABLE TO VOID. PATIENT IS BACK IN BED RESTING. PATIENT PLACED BACK ON BIPAP. NO FURTHER NEEDS NOTED. CALL LIGHT IN REACH.
--- NOTE | 2023-05-03 20:28 | EKG ---
[facility] [address] [facility] [place] [address] Signed Normal sinus rhythm Normal ECG When compared with ECG of 13-MAR-2023 15:34, No significant change was found Confirmed by Fermin Horton MD () on 05/03/2023 8:28:41 PM Electronically Signed By: FERMIN HORTON MD 05/03/232027 PATIENT NAME: MARTHA JOYCE FERCHO Electrocardiogram DATE OF : 61 PHYSICIAN: FERMIN HORTON MD REPORT #: [id number] REPORT IS CONFIDENTIAL AND NOT TO BE RELEASED WITHOUT AUTHORIZATION
[2023-05-03 21:37] VITALS: BP 152/75
--- NOTE | 2023-05-03 21:58 | NUR ---
PATIENT ASSESMENT COMPLETED. VITALS TAKEN AND RECORDED. INTAKE AND OUTPUT RECORDED. PATIENTS IV FLUSHED AND SL PER ORDER. PATIENT IS WEARING BIPAP. PATIENT HAS CPOX IN USE. PATIENT DENIES ANY SOB. PATIENT DENIES ANY NEEDS CALL LIGHT IN REACH.
--- NOTE | 2023-05-03 23:15 | NUR ---
PATIENT REMOVED FROM BIPAP AND PLACED ON OXYGEN. PATIENT ASSISTED TO THE BR A 1PA. PATIENT ABLE TO VOID. PATIENT IS BACK IN BED RESTING. PRN SLEEP AID GIVEN PER ORDER. RT IN ROOM TO ADMINISTER NEB. PATIENT PLACED BACK ON BIPAP. CALL LIGHT IN REACH. NO FURTHER NEEDS NOTED. CALL LIGHT IN REACH.
[2023-05-04] VITALS (7 sets, daily range): BP systolic 149–187; BP diastolic 61–89
--- NOTE | 2023-05-04 00:46 | NUR ---
PATIENT REMOVED BIPAP. WHEN THIS RN ENTERED ROOM. PATIENT STATED "I CANT DO THIS". REASSURED PATIENT THAT THE BIPAP WAS HELPING HER. PATIENT TOOK SIPS OF WATER. PATIENT THEN PLACED BACK ON BIPAP. CPOX READINGS ARE WNL. CALL LIGHT IN REACH.
--- NOTE | 2023-05-04 02:30 | NUR ---
PATIENT IS RESTING IN BED WEARING BIPAP. VITALS TAKEN AND RECORDED. INTAKE AND OUTPUT RECORDED. PATIENT BRIEFLY AWOKEN AND DENIES ANY NEEDS. CALL LIGHT IN REACH.
--- NOTE | 2023-05-04 04:09 | NUR ---
PATIENT IS RESTING IN BED ON RIGHT SIDE WITH EYES CLOSED, CPOX READINGS ARE WNL. CALL LIGHT IN REACH.
[2023-05-04 06:06] LABS: BASOPHILS 1.2 % (0-2); EOSINOPHILS 0.4 % (0-6); HEMATOCRIT 39.9 % (35.0-50.0); HEMOGLOBIN 12.9 g/dL (12.0-18.0); LYMPHOCYTES 20.1 % (24-44); MCH 33.1 (27-36); MCHC 32.4 g/dl (30-36); MONOCYTES 10.5 % (0-12); NEUTROPHILS 67.8 % (39-80); PLATELET COUNT 227 K/uL (140-440); RBC 3.91 M/ul (4.3-5.7); RDW 14.3 (10.5-15.0)
[2023-05-04 06:17] LABS: ALBUMIN 3.1 g/dL (3.4-5.0); ALBUMIN/GLOBULIN RATIO 0.79 (1.1-2.4); ANION GAP 9.6 (7-21); BILIRUBIN, TOTAL 0.4 ng/dL (0.2-1.0); BUN/CREATININE RATIO 15.66 (6.0-28.6); CREATININE, SERUM 0.83 mg/dL (0.55-1.02); MAGNESIUM 1.9 mg/dL (1.8-2.4); PHOSPHORUS, INORGANIC 2.1 mg/dL (2.5-4.9); POTASSIUM 3.6 mmol/L (3.5-5.1)
--- NOTE | 2023-05-04 06:28 | NUR ---
PATIENTS BIPAP REMOVED. PATIENT TOOK SIPS OF WATER. PATIENT REPOSITIONED IN BED. VITALS TAKEN AND RECORDED. INTAKE AND OUTPUT RECORDED. PATIENT PLACED BACK ON BIPAP. CPOX IN USE. NO FURTHER NEEDS NOTED. CALL LIGHT IN REACH.
--- NOTE | 2023-05-04 07:19 | NUR ---
REPORT RECIEVED FROM ZULAY DURANT. PT RESTING IN BED WITH EYES CLOSED. BIPAP IN PLACE WITH 16/8 SETTINGS AND 35% FIO2. OXGYEN SATUATIONS 94% WITH HEART RATE IN THE 70'S. PT ALLOWED TO REST UNDESTRUBED. BED RAILS UP. CALL LIGHT WITHIN REACH. BED ALARM ON.
--- NOTE | 2023-05-04 08:35 | NUR ---
Patient in chair after bsc, sba. Patient had complaints of weakness. Nurse notified. Shampoo cap applied with am care, it is still on per patient. Ice water and warm blanket given. Pt has no other needs at this time. call light within reach.
--- NOTE | 2023-05-04 08:41 | NUR ---
MORNING ASSESSMENT AND MEDICATION DUE. PT UP TO CHAIR, FINISHED WITH BREAKFAST AND RESTING IN CHAIR. PT REPORTS 5/10 LOWER BACK PAIN, SEE MAR FOR MEDICATION GIVEN. PT DENIES NAUSEA. PT ALERT AND ORIENTED TO ALL, STATES SHE FEELS "ABOUT THE SAME YESTEDAY, IT STILL HURTS TO BREATH." LUNG SOUNDS CLEAR THOUGHOUT WITH GOOD AIRFLOW HEARD. PT REMAINS ON 3L O2 BY TX WITH OXGYEN SATUATIONS 90-94%. MILD SNORNING HEARD WHEN PT IS SLEEPING. HEART TONES REGULAR. TRACE EDEMA CONTINUES IN BLE. PT CONTINUES TO DECLINE SCD'S. ABDOMEN SOFT AND NON TENDER. RED RASH OVER ABDOMEN CHIN AND ARMS APPEARS IMPROVED, MINIMALLY NOTICIBEL TODAY. NO ADDITIONAL REQUESTS OR COMPLAINTS. PT REPORTS SHE WANTS TO SLEEP. CALL LIGHT WITHIN REACH.
--- NOTE | 2023-05-04 09:53 | NUR ---
CHARGE NURSE REPORTS PTS RIGHT AC IV SITE HAS INFILTRATED. IV WAS DC'D BY ZULAY MITCHELL. GAUZE AND COBAN IN PLACE. NEW IV STARTED TO RIGHT WRIST PER PROTOCOL, BLOOD RETURN SEEN. PT TOLERATED WELL. IV ABX RESTARTED. PT REQUESTS TO GO BACK TO SLEEP. OXGYEN SATUARTIONS 93% ON 3L O2 BY NM. NO ADDITIONAL REQUESTS OR COMPLAINTS. CALL [facility] NUNES.
--- NOTE | 2023-05-04 10:04 | NUR ---
PT WAS RESTING IN CHAIR WITH EYES CLOSED AND SNORING. DID NOT ROUSE TO MY KNOCK. LEFT GUIDEPOST AND CONTACT CARD. SAID SILENT PRAYER FOR HEALING.
--- NOTE | 2023-05-04 10:38 | NUR ---
IV PUMP ALARMING, INFUSION AND FLUSH COMPLETE. IV FLUSHED AND SALINE LOCKED PER PROTOCOL. CHG CAP APPLIED. PT AWAKENS WITH CARES BUT DRIFTS QUICKLY BACK TO SLEEP. PT DECLIENS USE OF BIPAP AT THSI TIME. OXGYEN SATURATIONS 93% ON 3L O2 BY NC. ICE WATER REFILLED. NO ADDITIONAL REQUESTS OR COMPLAINTS. CALL LIGHT WITHIN REACH.
--- NOTE | 2023-05-04 11:27 | NUR ---
THIS RN TO ROOM TO CHECK ON PT. MEDICAITON DUE. IV ASSESSED, WNL. MEDICAITON STARTED. PT REPORTS HER BREATHIGN CONTINUES TO FEEL "HARD" "LIKE A TAKE A DEEP BREATH AND IT ISN'T GOING ANYWHERE." PT ASSISTED WITH REPOSITIONING IN CHAIR. OXGYEN SATURATION 93% ON 3L O2 BY NC. NO ADDITIONAL REQUESTS OR COMPLAINTS. CALL LIGHT WITHIN REACH.
--- NOTE | 2023-05-04 12:09 | NUR ---
PT CALL LIGHT ON. PT REQUESTS TO GO BACK TO BED. PT ENCOURAGED TO EAT LUNCH WHILE UP TO CHAIR AND THEN GET BACK TO BED AFTER LUNCH FOR A NAP. PT AGREES. LUNCH DELIVERED. PT ASSITED WITH REPOSITIONING FOR LUNCH. NO ADDIITONAL REQUESTS OR COMPLAINTS. CALL LIGHT WITHIN REACH.
--- NOTE | 2023-05-04 12:34 | NUR ---
PT CALL LIGHT ON. PT REQUESTS TO GET BACK TO BED. 1 PERSON ASSIST FOR LINE AND TUBE MANAGEMENT BACK TO BED. PT PLACES BIPAP MACHINE BUT THEN HAS A SHORT PANIC ATTACK FEELING "TRAPPED." BIPAP REMOVED AND PT ASSISTED WITH DEEP BREATHING ACTIVITIES. LUGN SOUNDS CLEAR. PT REQUESTS A NEBLUIZER TREATEMENT. RT TO BEDSIDE AND NEBULIZER TX GIVEN. PT CALM AND REPORTS FEELING COMFORTABLE IN BED. PT REQUESTS A LONG NAP AND TO BE LEFT ALONE FOR SOMETIME. BIPAP IN PLACE, 16/8 AND 35% FIO2. RR OF 18-24. OXYGEN SATUATION 95%. CIWA SCORE OF 2 FOR MILD ANXIETY AND MILD TREMOR. TREMOR IMPROVED FROM YESTERDAY. DARKENED PADS OF FEET WITH THICK CALISES THAT ARE CRAKED IN PLACES SEEN. PT REPORTS SHE DOES NOT WEAR SHOES AT HOME. EDUCATION DONE WITH PT. PT VERBALIZES UNDERSTANDING OF RISKS OF NO SHOES. PT DENIES ADDITIONAL REQUSTS OR COMPLAINTS. PT RESTING WITH EYES CLOSED. CALL LIGHT WITHIN REACH. BED RAILS UP.
--- NOTE | 2023-05-04 13:01 | NUR ---
PT REPORTS IV SITE IS BURNING, IV ASSESSED, WNL. NO S/S OF PHLEBITIS PRESENT. NOTED THAT STRAIGHT POTASSIUM PHOSPHATE IS INFUSING. NS SECONDARY LINE STARTED TO DILUTE POTASSIUM. PT REPORTS BURN HAS RESOLVED. NO ADDITONAL REQUESTS OR COMPLAINTS. BIPAP IN PLACE, SETTINGS UNCHANGED. CALL LIGHT WITHIN REACH. BED RAILS UP.
--- NOTE | 2023-05-04 13:50 | NUR ---
PT CALL LIGHT ON. PT REPORTS SHE IS "WAY TO HOT" AND CAN NO LONGER WEAR THE BIPAP. BIPAP REMOVED BY PT. PT RESTLESS IN BED AND REPORTS SHE IS UNABLE TO GET COMFORTABLE. PT CALMS WITH TIME BUT CONTINUES TO DECLINE BIPAP. PT ASSISTED WITH REPOSITIONING IN BED, HEAD OF BED ELEVATED TO 45 DEGREES. O2 BY NC AT 3L IN PLACE. FAN IN PLACE TO PROIVDE AIR FLOW. CASE MANAGEMENT TO BEDSIDE. PT DENIES ADDITIONAL REQUESTS OR COPMLAINTS. RESTING IN BED WITH NC IN PLACE. CALL LIGHT WITHIN REACH. BED RAILS UP.
--- NOTE | 2023-05-04 14:10 | NUR ---
IN TO PATIENT ROOM, JAKE BISWAS AT BEDSIDE. CASE MANAGEMENT ASSESSMENT COMPLETE. PATIENT LIVES IN A [place] IN [facility] WITH HER DISABLE SON. PATIENT STATES SHE IS THE PRIMARY CAREGIVER FOR HER SON NAN AT THIS TIME. PATIENT REQUIRES CHRONIC HOME O2 AT 2L, USES A CANE AND IS IN THE PROCESS OF COMPLETING A SLEEP STUDY FOR A CPAP. PATIENT DENIES FINANCIAL NEEDS AND FOOD INSUFFICIENCIES AT THIS TIME. PATIENT STATES SHE HAS AN APPOINTMENT WITH THE SLEEP CENTER IN [place] ON SUNDAY THAT SHE WILL NOT BE ABLE TO ATTEND AFTER HER ADMISSION. ATTEMPTED TO CONTACT THE [facility] TO RESCHEDULE AT THE PATIENTS REQUEST, BUT THEY ARE CLOSED AT THIS TIME.
--- NOTE | 2023-05-04 14:16 | NUR ---
PTS FRIEND DARRIN, WHO IS CARING FOR HER SON, CALLED TO REQUEST AND UPDATE. PT STATES IT IS OK TO UPDATE DARRIN. DARRIN UPDATED ON PT STATUS AND PLAN OF CARE AND STATES HER QUESTIONS HAVE BEEN ANSWERED. DARRIN STATES SHE WILL COME WITH PTS SON LATER TO VISIT. PT UPDATED. NO ADDITIONAL REQUESTS OR COMPLAITS. CALL LIGHT WITHIN REACH. BED RAILS UP.
--- NOTE | 2023-05-04 15:01 | NUR ---
PT CALL LIGHT ON. PT REQUESTS ASSISTANCE UNTANGLING FROM SHEETS AND REACHING HER PHONE. PT ASSISTED. PT RESTLESS. DENIES HEADACHE. CIWA SCORE OF 3, MONITORING. OXYGEN SATURATIONS 93% ON 3L O2 BY NC. PT ENCOAUGED TO REST. DECLINES ADDITIONAL TIME UP TO CHAIR. CALL LIGHT WITHIN REACH.NO ADDITIONAL REQUESTS OR COMPLAINTS.
--- NOTE | 2023-05-04 16:02 | NUR ---
THIS RN TO ROOM TO CHECK ON PT. PT RESTING IN BED WITH EYES CLOSED. RESPIRATIONS EVEN AND UNLABORED, HEAD OF BED AT 40 DEGREES. OXYGEN SATURATION 93% ON 3L O2 BY NC. PT ALLOWED TO REST UNDESTURBED. BED RAILS UP. CALL LIGHT WITHIN REACH.
--- NOTE | 2023-05-04 16:27 | NUR ---
PATIENT CALLED SHE AND I WALKED TO THE BATHROOM TO THE BEDSIDE COMMODE.
--- NOTE | 2023-05-04 17:20 | NUR ---
PT UP TO CHAIR WITH STAND BY ASSIST FOR DINNER. DINNER DELIVERED. PT EATS VERY RAPIDLY FINISHING TRAY IN UNDER 5 MINUTES. PT ENCORUAGED TO REMAIN UP TO CHAIR TO DIGEST FOOD FOR FEW MINUTES BEFORE GETTIGN BACK TO BED. CPOX REPLACED TO PTS FINGER, OXYGEN SATURATION 93% ON 3L O2 BY NC. PT DENIES PAIN AND NAUSEA. NO ADDITIONAL REQUESTS OR COMPLAINTS. CALL LIGHT WITHIN REACH. BED RAILS UP.
--- NOTE | 2023-05-04 17:52 | NUR ---
PT HERE FOR COPD EXACERBATION. STAND BY ASSIST UP TO RESTROOM AND CHAIR. PT TOLERATING REGULAR DIET WITH MODERATE APPITITE, BEERS SERVED WTIH DINNER. PT REMAINS ON 3L O2 BY NC OR BIPAP WITH 16/8 SETTINGS AND 35% FIO2. PT TOELRATES BIPAP WELL LAST NIGHT BUT POORLY THIS SHIFT, PREFEREING TO STAY ON NC TO MAINTAINS OXYGEN SATURATIONS ABOVE 90%. NEBULIZER TREATMENTS GIVEN. LUGN SOUNDS CLEAR GOOD AIR FLOW. CIWA OF 0-3 THIS SHIFT, NO ATIVAN NEEDED. BLOOD PRESSURE IMPROVED THIS SHIFT. PRN TYLENOL GIVEN THIS SHIFT FOR ACHES AND PAINS. PT VOIDING QUANITTY SUFFICIENT. PT USES CALL LIGHT AND MAKES NEEDS KNOWN.
--- NOTE | 2023-05-04 18:05 | NUR ---
PT CALL LIGHT ON. PT REPORTS 04/26 HEADACHE AND REQUESTS PAIN MEDICATION. SEE MAR FOR MEDICATION GIVEN. BLOOD PRESSURE ALSO ELEVATED. MEDICATION GIVEN. PT ENCORAUGED TO DRINK THE BEER SHE HAS FOR DINNER. PT HAS FINISHED ONE BEER. PT UP TO RESTROOM WITH STAND BY ASSIST. VOIDS 450ML CLEAR YELLOW URINE. ROBERT CARE PER PT. PT BACK TO BED. BIPAP PLACED PER PT REQUEST, SETTINGS UNCHANGED. OXYGEN SATURATIONS 95%. NO ADDDITIONAL REQUSETS OR COMPLAINTS. CALL LIGHT WITHIN REACH. BED RAILS UP.
--- NOTE | 2023-05-04 18:45 | NUR ---
PT RESTLESS AND HEARD BANGING ARROUND IN ROOM. PT KNOCKINGS OFF BEDSIDE TABLES AND THRASHING ARROUND IN BED. PT STATES "I JUST FEEL SO CRAWLY AND I CAN'T CALM DOWN OR GET COMFORTABLE." PT REPORTS HEADACHE CONTINUES AT 7/10. CIWA SCORE OF 9 FOR RESLESS AND ANXIETY, HEADACHE TREMORS AND SWEATY FEELINGS. PT UP TO RESTROOM, VOIDS WITHOUT ISSUE, ASSISTED WIHT ROBERT CARE AND BACK TO BED BUT CONTINUES TO BE VERY RESTLESS AND UNABLE TO SIT STILL. SEE MAR FOR MEDICATION GIVEN. PT UNABLE TO TOELRAT BIPAP AT THIS TIME. REMAINS ON 3L O2 BY NC. BEER FINISHED BY PT. BED RAILS UP. CALL LIGHT WITHIN REACH. NO ADDITIONAL REQUSTS OR COMPLAINTS. PT IN BED AND ABLE TO CONTAIN HER RESTLESS NESS AT THIS TIME. ENCOURAGED TO ALLOW MEDICATION TO WORK.
--- NOTE | 2023-05-04 19:30 | NUR ---
Pt called as she was getting very restless and anxious. On assessment pt had CIWA of 13. Gave pt 1mg IV Aivan which helped a lot.
--- NOTE | 2023-05-05 | NUR ---
Pt woke up more calm and pleasant says the ativan helped her a lot. Used the bathroom and back to bed.
--- NOTE | 2023-05-05 00:27 | NUR ---
Patient called to use bedside commode. Also she requested a warm blanket. Patient is back in bed, bipap in place, and call light is within reach. Nothing else is needed at this time.
[2023-05-05 05:05] VITALS: BP 166/82
[2023-05-05 05:22] LABS: BASOPHILS 0.9 % (0-2); EOSINOPHILS 0.5 % (0-6); HEMATOCRIT 40.4 % (35.0-50.0); HEMOGLOBIN 13.4 g/dL (12.0-18.0); MCH 33.5 (27-36); MCHC 33.1 g/dl (30-36); MCV 101.2 fl (81-99); NEUTROPHILS 68.6 % (39-80); PLATELET COUNT 238 K/uL (140-440); RBC 3.99 M/ul (4.3-5.7); RDW 14.4 (10.5-15.0)
[2023-05-05 05:34] LABS: ALBUMIN 3.1 g/dL (3.4-5.0); ALBUMIN/GLOBULIN RATIO 0.79 (1.1-2.4); ANION GAP 5.9 (7-21); BILIRUBIN, TOTAL 0.3 ng/dL (0.2-1.0); BUN/CREATININE RATIO 17.85 (6.0-28.6); CALCIUM 8.9 mg/dL (8.5-10.1); CREATININE, SERUM 0.84 mg/dL (0.55-1.02); POTASSIUM 3.9 mmol/L (3.5-5.1)
--- NOTE | 2023-05-05 06:42 | NUR ---
BIPAP ALARMING, PT RESTING IN BED WITH NO OXYGEN IN PLACE. OXGYEN SATURATION 74%. PT AWAKENS TO TOUCH. 3L O2 BY NC PLACED. PT REPORTS NEED TO USE THE RESTROOM. PT UP TO RESTROOM ONCE OXYGEN SATURATIONS STABALIZE TO 91%. PT VOIDS 500ML, PT ASSISTED WITH ROBERT CARE. STAND BY ASSIST BACK TO BED. OXGYEN SATURATION OF 91%ON 3L O2 BY NC. PT RESTIING ON RIGHT SIDE. ICE WATER REFILLED. PT DENIES ADDITIONAL REQUESTS OR COMPLAINTS. CALL LIGHT WITHIN REACH. PTS PRIMARY RN UPDATED.
--- NOTE | 2023-05-05 07:21 | NUR ---
REPORT RECEIVED FROM ZULAY MATA. PT RESTING ON RIGHT SIDE WITH EYES CLOSED. RESPIRATIONS EVEN AND UNLABORED, OXYGEN SATURATION 92% ON 3L O2 BY NC. PT ALLOWED TO REST. CALL LIGHT WITHIN REACH. BED RAILS UP.
--- NOTE | 2023-05-05 08:46 | NUR ---
MORNING ASSESSMENT AND MEDICATION DUE. PT UP TO CHAIR, RESTING WITH EYES CLOSED. RESPIRATIONS EVEN AND UNLABORED. OXYGEN SATURATION 95% ON 3L O2 BY NC. PT WEANED TO 2L O2 BY NC PER HER BASELINE AND MAINTAINS OXYGEN SATURATIONS 90-93%. PT AWAKENS TO VOICE. PT REPORTS ANXIETY AND RESTLESSNESS. PT DENIES HEADACHE BUT REPORTS 8/10 HIP PAIN. MILD TREMORS SEEN. PT REPORTS FEELINGS OF DIAPHROESIS, PALMS MOIST BUT NO VISABLE SWEAT. CIWA SCORE OF 6. MD STATES OK TO GIVE PRN MEDICATION, SEE MAR FOR MEDICATION GIVEN. PT RECEIVES A PHONE CALL FROM HER SISTER AND BECOMES MORE ANXIOUS. PT ASSISTED WITH DEEP BREATHING ACTIVITES AND CALMS SOMEWHAT. PT ALERT AND OREINTED TO ALL AND ABLE TO ADD NUMBERS. LUNG SOUNDS CLEAR BUT FOR EXPIRATORY WHEEZE HEARD IN LLL. RED STREAKED MUCOUS SEEN WITH COUGH. PT TACHYPENIC WITH ANXIETY, WORK OF BREATHING WNL AND RATE WNL WHEN PT CALMS. HEART RATE IN THE 90'S. YEASY SMELL VERY STRONG FROM PTS ROBERT AREA. SKIN UNDER PANNUS WNL. PT REPORTS SHE DOES FEEL ITCHY IN HER ROBERT AREA. MD UPDATED, STATES TO CONTINUE WITH LORAZAPAM PRN EVEN THOUGH PT IS RECEIVING BEERS. NEW MEDICATIONS ORDERS PLACED FOR ROBERT AREA. RED RASH OVER ARMS AND CHIN CONTINUE, IMPROVED. NO RASH SEEN ON ABDOMEN. PT REMAINS UP TO CHAIR. TALKING ON PHONE. NO ADDITIONAL NEEDS AT THIS TIME. CALL LIGHT WITHIN REACH.
[2023-05-05 09:20] VITALS: BP 143/70
--- NOTE | 2023-05-05 09:32 | NUR ---
PT CALL LIGHT ON. PT REPORTS "MY ANXIETY IS GOING THROUGH THE ROOF AND I'M ITCHY AND MY STOMACH IS GETTING UP SET." PT STATES SHE DOES NOT NORMALLY FEEL LIKE THIS AT HOME BUT IF SHE DOES "I WOULD JUST GO GET A BEER." PT JORDAN REPORTS A HEADACHE NOW AT 5/10. PT STATES "MY SKIN IS ON FIRE AND MY STOMACH HURTS REALLY BAD." CIWA SCORE OF 13. SEE MAR FOR MEDICAITON GIVEN. OXGYEN SATURATION REMAINS 89-93% ON 2L O2 BY NC. PT CALMS AFTER MEDICATION ADMINISTRATION. THIS RN REMAINS AT BEDSIDE UNTIL PT IS CALM. OXYGEN SATURATION BEGINS TO DROP TO 86% ONCE PT IS RESTING. O2 INCREASED BACK TO 3L BY NC TO MAINTAIN SATURATIONS 89-93%. NO ADDITONAL NEEDS AT THIS TIME.CALL LIGHT WITHIN REACH. MD AND CERTIFIED GENETIC COUNSELOR UPDATED.
--- NOTE | 2023-05-05 10:11 | NUR ---
IV PUMP ALARMING, INFUSION AND FLUSH COMPELTE. IV FLUSHED AND SALINE LOCKED PER PROTOCOL. CHG CAP APPLIED. PT RESTING WITH EYES CLOSED. OXGYEN SATUATION 92% ON 3L O2 BY NC. MILD SNORNING HEARD. PT AWAKENS TO VOICE. PT RPEORTS 2/10 HEADACHE AND HIP PAIN, REPORTS ITCHING HAS RESOLVED. REPORTS MILD NAUSEA. CIWA SCORE NOW 6. PT RETURNS TO RESTING WITH EYES CLOSED. NO ADDITIONAL REQUESTS OR COMPLAINTS. CALL LIGHT WITHIN REACH.
--- NOTE | 2023-05-05 11:42 | NUR ---
THIS RN TO ROOM TO CHECK ON PT. PT DENIES HEADACHE, ITCHING, OR NAUSEA. MILD TREMORS AND ANXIETY CONTINUE. CIWA NOW 4. PT REPORTS SHE IS WILLING TO SHOWER AFTER LUNCH. OXYGEN SATURATIONS 94% ON 3L O2 BY NC. NO ADDITIONAL REQUESTS OR COMPLAINTS. CALL LIGHT WITHIN REACH.
--- NOTE | 2023-05-05 12:08 | NUR ---
PTS SISTER TO BEDSIDE STATING PTS NEEDS HELP. PT REPORTS SHE WOULD LIKE TO SHOWER AND HAVE SOMETHING TO EAT. PT REMINDED OF THE PLAN THAT WAS MADE FOR LUNCH AND THEN A SHOWER AFTER LUNCH. PT VERBALZIES UNDERSTANDING. MEDICATIONS GIVEN. PTS SISTER HAS BROUGHT CLOTHES FROM HOME. PT DROWSY BUT INTERACTING APPROPRIATLY. CIWA SCORE REMAINS AT 4. LUNCH DELIVERED TO PT. PT TOLEARTING 3L O2 BY AR WITH OXGYEN SATUARTIONS 90-94%. NO ADDITONAL REQUESTS OR COMPLAINTS. SISTER HAS LEFT BEDSIDE. CALL LIGHT WITHIN REACH.
--- NOTE | 2023-05-05 13:06 | NUR ---
PT FINISHED WITH LUNCH AND READY FOR SHOWER. PT UP WITH BACK ROLLER TO SHOWER, 1 PERSON ASSIST. OXGYEN SATURATION REMAINS ABOVE 90% ON 3L O2 BY NC. NO ADDITIONAL NEEDS, BACK ROLLER AT BEDSIDE WITH PT. CALL LIGHT WITHIN REACH.
--- NOTE | 2023-05-05 13:30 | NUR ---
PATIENT TOOK VERY QUICK SHOWER. DID NOT CLEAN FEET OR ROBERT AREA. PATIENT SAT ON BSC AND THEN ASKED THIS QUALITY LIAISON TO "FRESHEN ME UP". PT STATED THIS QUALITY LIAISON HAD HER "SAT WEIRD" ON THE COMMODE, SO SHE "CAN'T DO IT HERSELF". PATIENT RUSHED TO BED BEFORE THIS QUALITY LIAISON COULD LOWER IT TO PROPER HEIGHT. NURSE NOTIFIED. CALL LIGHT WITHIN REACH.
--- NOTE | 2023-05-05 13:34 | NUR ---
PT FINISHED WITH SHOWER. VOLTAGE INSPECTOR REPORTS PT DOES A VERY POOR JOB OF CLEANING HERSELF. PT REPORTS SHE IS UNABLE TO REACH AREAS OF BODY RELATED TO HER WEIGTH AND PANNUS. TOOLS AND METHODS FOR CLEANING TAUGHT TO PT. PT UNINTERESTED, WANTING TO GET BACK TO BED. PT BACK TO BED. NYSTATIN CREAM APPLIED TO ROBERT AREA, PT ENCORUAGED TO APPLIED HER OWN CREAM, ASSISTS MINAMALLY. PT REMAINS ALERT AND OREINTED ALTHOUGH DROWSY ADN REPORTING SHE WANTS TO SLEEP. PT REPORTS 5/10 HEADACHE, DENIES NAUSEA. MILD TREMOS SEEN. NO DIAPHREISIS PRESSENT. PT DENIES ITCHING. CIWA SCORE OF 5. LUNG SOUND CLEAR. OCCATIONAL LOOSE COUGH CONTINUES. PT REMAINS ON 3L O2 BY NC TO MAINTAIN OXGYEN SATURATIONS ABOVE 90%. HEART RATE IN THE 80'S. BLE NOW SHOWS +1 PITTING EDEMA. LEGS ELEVATED. PT RESTING WITH EYES CLOSED BY THE END OF ASSESSMENT. CPAP PLACED ON PT. SETTINGS UNCHANGED. BED RAILS UP. CALL LIGHT WITHIN REACH.
--- NOTE | 2023-05-05 14:35 | NUR ---
IN ROOM TO ASSIST PATIENT WITH BIPAP. PT REQUESTS TO USE BR, REMOVES HAT FROM TOILET WHEN THIS RN STEPS OUT, UNMEASURED VOID X1. SBA BACK TO BED FOR LINE MANAGEMENT. ATTEMPTED TO ASSIST PATIENT TO PLACE BIPAP, PT ACTS FRUSTRATED AND PULLS BIPAP OFF AND TOSSES IT ASIDE. OFFERED TO ASSIST WITH O2 NC, PT AGREES. PT STATES WOULD LIKE TO BE LEFT ALONE TO REST, THIS RN COMPLIES, CALL LIGHT IN REACH. ALL PERSONAL BELONGINGS IN REACH
--- NOTE | 2023-05-05 14:40 | NUR ---
THIS RN TO ROOM TO CHECK ON PT. PT RESTING WITH EYES CLOSED. RESPIRATIONS EVEN AND UNLABORED. OXGYEN SATURATIONS 93% ON 3L O2 BY NC WHILE RESTING. CALL LIGHT WITHIN REACH. BED RAILS UP. PT ALLOWED TO REST UNDESTURBED.
--- NOTE | 2023-05-05 15:29 | NUR ---
THIS RN TO ROOM TO CHECK ON PT. PT RESTING IN BED WITH EYES CLOSED. RESPRIATIONS EVEN AND UNLABORED. MILD SNORNING HEARD. OXYGEN SATURATION 92% ON 3L O2 BY NC. ETHNOLOGY TEACHER STATES SHE WAS IN ROOM TO ASSIST PT TO RESTROOM AND PT REFUSED CPAP AT THAT TIME. PT ALLOWED TO REST. CALL LIGHT WITHIN REACH. BED RAILS UP.
--- NOTE | 2023-05-05 15:38 | NUR ---
PT HERE FOR COPD EXACERBATION. STAND BY ASSIST UP TO RESTROOM AND CHAIR. PT TOLERATING REGULAR DIET WITH MODERATE APPITITE, BEERS SERVED [facility] DINNER. SHOWER THIS SHIFT. NYSTATIN CREAM ORDERED FOR VAGINAL ODOR AND ITCHING. PT REMAINS ON 2-3 L O2 BY NC OR BIPAP WITH 16/8 SETTINGS AND 35% FIO2. PT TOELRATES BIPAP WELL LAST NIGHT BUT POORLY THIS SHIFT, PREFEREING TO STAY ON NC TO MAINTAINS OXYGEN SATURATIONS ABOVE 90%. NEBULIZER TREATMENTS GIVEN. LUNG SOUNDS CLEAR GOOD AIR FLOW. CIWA OF 1-13 THIS SHIFT, ATAVAN GIVEN AND DIAZAPAM ORDERED/GIVEN, AWARE. PRN TYELNOL GIVEN FOR HEADACHE PT VOIDING QUANITTY SUFFICIENT. PT USES CALL LIGHT AND MAKES NEEDS KNOWN MAKES NEEDS KNOWN.
--- NOTE | 2023-05-05 16:00 | NUR ---
PT CALL LIGHT ON. PT REPORTS "I JUST WOKE UP ANXIOUS BECUASE I DON'T WANT TO BE HERE." CIWA SCORE OF 4. PT REQUESTS TO HAVE HER BIPAP BACK ON. PT ASSITED WITH BIPAP, SETTINGS UNCHANGED. PT DENIES ADDITIONAL REQUESTS OR COMPLAINTS. CALL LIGHT WITHIN REACH. BED RAILS UP.
--- NOTE | 2023-05-05 17:54 | NUR ---
THIS RN TO ROOM TO CHECKON PT. PT CONTINUES RESTING WITH EYES CLOSED. RESPIRATIONS EVEN AND UNLABORED. OXGYEN SATURATION 93% ON 3L O2 BY NC. PT ALLOWED TO REST. DINNER AT BEDSIDE. CALL LIGHT WITHIN REACH.
[2023-05-05 18:04] VITALS: BP 175/83
[2023-05-05 18:22] VITALS: BP 162/75
--- NOTE | 2023-05-05 18:24 | NUR ---
THIS RN TO ROOM TO CHECK ON PT. PT UP TO CHAIR, EATING DINNER. PT REPORTS SHE SLEPT WELL AND STATES "i WOKE UP AND FELT A LOT BETTER." CIWA SCORE NOW 2. PT DENIES HEADACHE, NAUSEA, OR ITCHING SENSATIONS. PT CALM AND COOPERATIVE. PT REPORTS SHE WOULD LIKE TO AMBULATE LATER THIS EVENING BEFORE BED, PT ENCORUAGED TO CALL NURSING STAFF WHEN SHE IS READY. BLOOD PRESSURE REASSESSED. OXGYEN SATURATION REMAINS 90-92% ON 3LO2 BY DE. PT DENIES ADDITIONAL REQUESTS OR COMPLAINTS. CALL LIGHT WITHIN REACH.
--- NOTE | 2023-05-05 19:16 | NUR ---
PT AWAKE AND ALERT, LAYING IN BED, BESIDE REPORT RECEIVED FROM JAKE BISWAS, PLAN OF CARE FOR TONIGHT DISCUSSED, PT DENIES REQUESTS AT THIS TIME.
--- NOTE | 2023-05-05 19:40 | NUR ---
IN TO ASSIST PT TO THE BSC, SBA, PT BACK TO BED, SNACK PROVIDED
--- NOTE | 2023-05-05 20:24 | NUR ---
PT AWAKE AND ALERT, C/O FEELING ANXIOUS AND REQUESTING ATIVAN PO, HANDS SLIGHTLY SHAKY, PT REQUESTING TYLENOL AND MELATONIN, MEDICATED PER ORDER, WITH ATIVAN 1MG PO, TYLENOL AND MELATONIN, SUPPORT GIVEN.
--- NOTE | 2023-05-05 20:48 | NUR ---
PT REQUESTING RN TO GIVE HER PULMICORT NEB NOW, GIVEN PER RN DUE TO RT INVOLVED IN PT CARE IN ER, WHEN TREATMENT DONE VS DONE AND ASSESSMENT DONE, PT UP TO BR, TOLERATES AMBULATION WELL, VOIDED YELLOW URINE, ASSISTED WITH PERICARE, BACK TO BED, DENTURES REMOVED PER PT AND ORAL CARE DONE PER PT.
[2023-05-05 20:50] VITALS: BP 145/61
--- NOTE | 2023-05-05 21:10 | NUR ---
PT DESIRES TO GO ON BIPAP, RN ASSIST WITH PLACEMENT, FIO2 35%, PT ATTEMPTING TO REST, RESP EVEN AND REG.
--- NOTE | 2023-05-05 21:43 | NUR ---
PT CALLED, WANTED THE BIPAP MACHINE SHUT OFF. O2 NC IN PLACE, SATS READING 91 PER CPOX.
--- NOTE | 2023-05-05 22:00 | NUR ---
BIPAP OFF PER PT, OXYGEN REPLACED AT 3L/NC, PT RESTING WITHOUT REUQESTS AT THIS TIME.
--- NOTE | 2023-05-05 22:02 | NUR ---
PRIMARY RN AWARE OF PT NEED FOR ANXIETY MEDICATION. PT STATES HER DISABLED SON MESSAGED HER HE NEEDED HELP. INCREASED HER ANXIETY. SHE HAS PEOPLE AT HER HOUSE HELPING THE SON, BUT SHE FEELS ANXIOUS NOT BEING THERE. FRESH ICE WATER GIVEN, HOB ELEVATED, O2 REMAINS IN PLACE, SATS 92%
--- NOTE | 2023-05-05 22:45 | NUR ---
PT ASLEEP, RESP EVEN AND REG, OXYGEN SATS 90%.
--- NOTE | 2023-05-06 00:05 | NUR ---
PT CONTINUES TO SLEEP, OXYGEN SATS 91%, HR 93, RESP RATE 20.
--- NOTE | 2023-05-06 01:24 | NUR ---
RN CALLED TO ROOM, PT REQUESTING ASSIST UP TO BR, RN STAND BY ASSIST, REQUESTING ASSIST WITH PERICARE AFTER VOIDING 300ML YELLOW URINE, PT REQUESTING ATIVAN FOR THE JITTERS, MEDICATED WITH 1MG PO PER ORDER, SL IN RIGHT WRIST FLUSHES WELL, PT REQUESTING NEXT TIME SHE NEEDS ATIVAN TO HAVE IT IV, PT BACK TO SLEEP QUICKLY, REMAINS ON 3L/NC, OXYGEN SATS 90%.
--- NOTE | 2023-05-06 03:20 | NUR ---
PT APPEARS TO SLEEP, RESP EVEN AND REG, OXYGEN SATS 90%
--- NOTE | 2023-05-06 03:55 | NUR ---
RN TO ROOM DUE TO CPOX ALARM, OXYGEN SAT 85-86%, OXYGEN FOUND OFF OF PATIENT, PT AWAKENS BRIEFLY WHILE RN REPLACES OXYGEN, SATS RISING TO 89-90% ON 3.5L/NC. PT BACK TO SLEEP.
--- NOTE | 2023-05-06 05:00 | NUR ---
PT CONTINUES TO SLEEP, RESP EVEN AND REG
[2023-05-06 05:26] LABS: BASOPHILS 0.8 % (0-2); EOSINOPHILS 0.6 % (0-6); HEMATOCRIT 41.3 % (35.0-50.0); HEMOGLOBIN 13.6 g/dL (12.0-18.0); LYMPHOCYTES 20.8 % (24-44); MCH 33.3 (27-36); MCHC 32.9 g/dl (30-36); MCV 101.3 fl (81-99); NEUTROPHILS 68.8 % (39-80); PLATELET COUNT 216 K/uL (140-440); RBC 4.08 M/ul (4.3-5.7); RDW 14.4 (10.5-15.0)
[2023-05-06 05:34] LABS: ANION GAP 7.4 (7-21); BUN/CREATININE RATIO 21.59 (6.0-28.6); CREATININE, SERUM 0.88 mg/dL (0.55-1.02); POTASSIUM 4.4 mmol/L (3.5-5.1)
[2023-05-06 06:30] VITALS: BP 148/69
--- NOTE | 2023-05-06 06:30 | NUR ---
PT ASLEEP, AWAKENS FOR VS, VSS, PT CALM AND BACK TO SLEEP AT THIS TIME, RESP EVEN AND REG.
--- NOTE | 2023-05-06 07:33 | NUR ---
THIS RN TO ROOM TO CHECK ON PT. PT RESTING IN BED WITH EYES CLOSED, SEMIFOWLER, WITH HEAD OF BED ELEVATED TO 30 DEGREES. 3L O2 BY NC IN PLACE WITH OXGYEN SATURATION OF 92%. BED RAILS UP. CALL LIGHT WITHIN REACH. PT ALLOWED TO REST.
--- NOTE | 2023-05-06 07:52 | NUR ---
MORNING ASSESSMENT AND MEDICATION DUE. PT UP TO CHAIR, REPORTS SHE JUST WOKE UP. PT ENCORAUGED TO AMBULATE THIS MORNING SHE STATES HER BREATHING "FEELS BETTER." PT DECLIENS AT THIS TIME BUT STATES "MAYBE AFTER BREAKFAST." PT DENIES PAIN AND NAUSEA. PT DENIES HEADACHE, ITCHING, HALUCINATIONS. PT IS ABLE TO ADD NUBMERS. CIWA SCORE OF 2 AT THIS TIME. PT REPORTS ANXIETY BUT APPEARS CALM AT THIS TIME. LUNG SOUNDS CLEAR. PT WEANED TO 2L O2 BY NC PER HER BASELINE AND MAINTAINS OXYGEN SATURATIONS 89-91%. WORK OF BREATHING WNL AND APPEARS MORE RELAXED COMPARED TO YESTERDAY'S ASSESSMENT. HEART TONES REGULAR. +1 PITTING EDEMA CONTINUES AND PT NOW HAS +1 PITTING EDEMA IN HANDS WELL. MEDICATIONS GIVEN. EDUCATION DONE WITH PT REGARDING HOME CPAP USE, SLEEP APNEA AND RESPIRATORY CARE. NO ADDITIONAL REQUESTS OR COMPLAINTS. CALL LIGHT WITHIN REACH.
--- NOTE | 2023-05-06 08:56 | NUR ---
PT CALL LIGHT ON. PT REPORTS HER IV SITE IS BURNING. LINE ASSESSED, INFLAMED AND RED. IV DC'D PER PROTOCOL. NEW IV STARTED PER PROTOCOL TO LEFT FORARM. IV ABX CONTINUES THROUGH THIS SITE. PT REPORTS SHE WOULD LIKE TO GO BACK TO SLEEP. PT DOZES OFF WHILE UP TO CHAIR, OXGYEN SATURATION SEEN TO DROP TO 85% WHILE PT IS SLEEPING. PT ENDCOURAGED TO WEAR BIPAP. PT AGREES. BIPAP PLACED, SETTINGS UNCHANGED. OXGYEN SATURATION CLIMBS IMMIDATLY TO 92%. PT DENIES ADDITIONAL REQUESTS OR COMPLAINTS. CALL LIGHT WITHIN REACH. BED RAILS UP.
[2023-05-06 09:46] VITALS: BP 145/68
--- NOTE | 2023-05-06 09:59 | NUR ---
PT CALL LIGHT ON. PT AWAKEN AND HAS REMOVED BIPAP MACHINE. PT REPORTS NEED TO USE THE RESTROOM. PT UP TO RESTROOM WITH STAND BY ASSIST AND CANE. PT VOIDS 250ML WITH OUT ISSUE. ROBERT CARE PER PT. VITALS SIGNS STABLE. PT UP TO AMBULATE IN GAN X 1 LAP. PT REQUIRS 3L O2 BY NC WITH AMBULATION TO MAINTAIN OXGYEN SATUATIONS ABOVE 89%. PT BACK TO ROOM AND UP TO CHAIR. PT REQUESTS TIME TO NAP. PT REQUESTS BIPAP BACK IN PLACE. BIPAP IN PLACE, SETTINGS UNCHANGED. CALL LIGHT WITHIN REACH. NO ADDITIONAL REQUESTS OR COMPLAINTS.
--- NOTE | 2023-05-06 10:55 | NUR ---
THIS RN TO ROOM TO CHECK ON PT. PT HAS GOTTEN SELF BACK TO BED WITH OUT CALLING AND WITHOUT OXGYEN IN PLACE. PT HAS REMOVED CPAP. OXGYEN SATURATIONS NOW 82%. PT PLACED ON NC AT 3L O2 AND SATUARTIONS CLIMB TO 90%. EDUCATION DONE WITH PT AND PT VERBLAIZES UNDERSTANDING. PT REQUESTS TO GO BACK ON BIPAP. BIPAP PLACED. SETTINGS UNCHANGED. BED RAILS UP. CALL LIGHT WITHIN REACH. BED ALARM NOW ON.
--- NOTE | 2023-05-06 12:45 | NUR ---
THIS RN TO ROOM TO CHECK ON PT. PT BACK IN BED, RESTING BUT REPORTS SHE IS HAVING TROUBLE SLEEPING. PT REPORTS ANOTHE NURSE GOT HER BACK TO BED AND UP TO THE RESTROOM. PT DENIES NEED TO USE RESTROOM AT THIS TIME. PT ENCOURAGED TO STAY AWAKE AND ACTIVE DURING THE DAY, DECLINES. PT REQUESTS HER BIPAP SO SHE CAN SLEEP. PT ASSISTED WITH BIPAP, SETTINGS UNCHANGED. PT DENIES PAIN AND NAUSEA. CIWA REMAINS AT 2. NO ADDITIONAL NEEDS AT THIS TIME. CALL LIGHT WITHIN REACH. BED RAILS UP.
--- NOTE | 2023-05-06 13:27 | NUR ---
THIS RN TO ROOM TO CHECK ON PT. PT RESTING IN BED WITH EYES CLOSED. REPSIRATIONS EVEN AND UNLABORED WITH BIPAP IN PLACE, SETTINGS UNCHNAGED. PT ALLOWED TO REST. CALL LIGHT WITHIN REACH. BED RAILSUP. OXGYEN SAUTRATIONS 91% ON BIPAP 16/8 AND 35% FIO2.
--- NOTE | 2023-05-06 13:56 | NUR ---
AFTERNOON ASSESSMENT AND MEDICATION DUE. HIMANSHU, RN INFORMS THIS RN THAT PT HAS BECOME REALLY ANXIOUS. THIS RN TO ROOM. PT REPORTS SHE JUST RECEIVED A PHONE CALL FROM HER DAUGHTER AND SON AND NOW SHE IS REALLY ANXIOUS. THERAPUIC COMMUNICATION DONE WITH PT AND PT CALMS. PT REPORTS "I JUST NEED MORE BEER." CIWAS SCORE OF 6. ADDITIONAL BEERS ORDERED FROM [facility]. PT DRINKING BEERS TALKING ABOUT FAMILY AND CALMING DOWN. PT REMAINS ALERT AND OREINTE TO ALL. PT DENIES PAIN AND NAUSEA. PT DENIES HEADACHE. PT ABLE TO REPOSITOIN SELF IN BED AND MOVES AROUND ROOM WITH STAND BY ASSIST. LUNG SOUNDS REMAIN CLEAR THROUGHOUT. PT WEANED TO 2L O2 BY NC PER HER BASELINE AND IS MAINTAINING OXYGEN SATURATIONS AT 92-95%. OCCATIONAL COUGH UNCHANGED. +1 PITTING EDEMA CONTINUES IN HANDS AND FEET. PT REPORTS "I SHOULD HAVE LISTENED TO YOU YESTERDAY AND JUST HAD THE BEER." PT REPORTS FEELING "MUCH BETTER" NOW AFTER DRINKING A BEER. DR HORTON UPDATED AND TO ROOM TO ROUND ON PT. NEW ORDERS GIVEN. BEER ORDERD NOW WITH MEALS AND PRN PER MD. PT UP TO RESTROOM WITH STAND BY ASSIST. PT VOIDS WITHOUT ISSUE. ROBERT CARE PER PT. STAND BY ASSIST BACK TO BED. PT DENIES ADDITIONAL NEEDS AT THIS TIME. CALL LIGHT WITHIN REACH. BED RAILS UP.
--- NOTE | 2023-05-06 14:24 | NUR ---
THIS RN TO ROOM TO CHECK ON PT. PT RESTING IN BED, WATCHING TV. PT DENIES REQUESTS OR COMPLAINTS. PT REPORTS PAIN REMAINS WELL CONTROLLED BUT AGREES TO SCHEULED TYELNOL. WORK OF BREATHING REMAINS WNL. NO ADDITIONAL REQUESTS OR COMPLAINTS. CALL LIGHT WITHIN REACH.
[2023-05-06 14:48] VITALS: BP 144/72
--- NOTE | 2023-05-06 15:43 | NUR ---
THIS RN TO ROOM TO CHECK ON PT. PT RESTING WITH EYES CLOSED. BIPAP REMAINS IN PLACE, SETTINGS UNCHANGED. OXYGEN SATURATION OF 93%. PT ALLOWED TO REST UNDESTURBED. CALL LIGHT WITHIN REACH. BED RAILS UP.
--- NOTE | 2023-05-06 15:51 | NUR ---
PT HERE FOR COPD EXACERBATION. STAND BY ASSIST UP TO RESTROOM, CHAIR AND TO AMBULATE IN GAN THIS SHIFT. BEERS NOW SERVED WITH ALL MEALS AND PRN RELATED TO ANXIETY. PT TOLERATING REGULAR DIET WITH MODERATE APPITITE. NYSTATIN CONTINUES PT ROBERT AREA. PT REMAINS ON 2-3 L O2 BY NC OR BIPAP WITH 16/8 SETTINGS AND 35% FIO2. PT TOELRATES BIPAP WELL THIS SHIFT TO MAINTAIN OXYGEN SATURATIONS ABOVE 90%. NEBULIZER TREATMENTS GIVEN. LUNG SOUNDS CLEAR GOOD AIR FLOW. CIWA OF 2-6 THIS SHIFT, BEER PROVIDED. PT VOIDING QUANITTY SUFFICIENT. PT USES CALL LIGHT INCONSISTANTLY, BED ALARM AT TIMES FOR SAFETY.
--- NOTE | 2023-05-06 16:28 | NUR ---
tHIS RN TO ROOM TO CHECK ON PT. PT UP TO CHAIR WITH ASSISTANCE FROM ZULAY DOWNS. PT REPORTS "I'M FEELING A LOT BETTER TODAY." PT DENIES ANXIETY, RESTLESSNESS, HEADACHES, DIAPHORESIS OR NAUSEA. CIWA SCORE NOW 1 FOR MILD TREMORS. PT DENIES NEED FOR ADDITONAL BEER. CRACKERS PROVIDED PER PT REQUEST. OXYGEN SATURATION 95% ON 2L O2 BY NC. PT DENIES ADDITIONAL REQUESTS OR COMPLAINTS. CALL LIGHT WITHIN REACH.
--- NOTE | 2023-05-06 17:04 | NUR ---
pT CALL LIGHT ON. PT REQUESTS ASSISTANCE UP TO RESTROOM. STAND BY ASSIST FOR LINE AND TUBE MANAGEMENT. PT VOIDS WITHOUT ISSUE. ROBERT CARE PER PT. STAND BY ASSIST BACK TO BED. PT CONTINUES TO REPORTS 2/10 PAIN THAT IS WELL CONTROLLED. PT DENIES NEED FOR PAIN MEDICAITON. PT DENIES NAUSEA. PT REPORTS HER BREATHING FEELS "MUCH BETTER NOW." PT ABLE TO PULL 1000ML ON HER I.S. PT DENIES ADDITIONAL REQEUSTS OR COMPLAINTS. CALL LIGHT WITHIN REACH. BED RAILS UP.
--- NOTE | 2023-05-06 17:11 | NUR ---
THIS RN TO ROOM TO CHECK ON PT. PT REQUESTS ASSIANCE UP TO RESTROOM. 1 PERSON ASSIST UP TO RESTROOM. PT VOIDS WITH OUT ISSUE, ROBERT CARE PER PT. STAND BY ASSIST BACK TO CHAIR. PT CHEERFUL AND TELLING JOKES. PT REQUESTS AN ADDITIONAL BEER. CIWA SCORE OF 1 CONTINUES. DINNER DELIVERED TO PT WITH DINNER BEERS. OXYGEN SATURATIONS CONTINUES AT 92% ON 2L O2 BY NC. PT DENIES ADDITIONAL REQUESTS OR COMPLAINTS. CALL LIGHT WITHIN REACH.
[2023-05-06 17:31] VITALS: BP 167/74
--- NOTE | 2023-05-06 18:14 | NUR ---
PT CALL LIGHT ON. PT REQUESTS ASSISTANCE UP TO RESTROOM. STAND BY ASSIST UP TO RESTROOM. PT VOIDS WITHOUT ISSUE. ROBERT CARE PER PT. STAND BY ASSIST BACK TO BED. PT CONTINUES TO HAVE CHEERFUL AND JOKING DEMINER. CIWA SCORE OF 0. OXYGEN SATURATIONS 93%ON 2L 2O BY NC. PT REPORTS SHE HAS BEEN TALKING WITH FAMILY ON THE PHONE. ICE WATER REFILLED. CALL LIGHT WITHIN REACH. PT DENIES ADDITIONAL REQUESTS OR COMPLAINTS. CALL LIGHT WITHIN REACH.
--- NOTE | 2023-05-06 19:10 | NUR ---
BEDSIDE REPORT RECEIVED FROM JAKE BISWAS, PT CHEERFUL, STATING TODAY WAS A MUCH BETTER DAY, PT APPEARS CALM.
--- NOTE | 2023-05-06 19:45 | NUR ---
PATIENT CALLED NEED HELP TO COMB/BRUSH HER TANGLED HAIR. THIS EVENT MARKETING REPRESENTATIVE USED THE NON-RINSED SHAMPOO.
--- NOTE | 2023-05-06 20:20 | NUR ---
PT UP TO BR TO VOID WITH RN STANDBY, GAIT STEADY SOME DAVIDSON NOTED WITH AMBULATION, OXYGEN REMAINS IN PLACE, BACK TO BED, VS STABLE, ASSESSMENT COMPLETED.
[2023-05-06 20:22] VITALS: BP 137/60
--- NOTE | 2023-05-06 20:28 | NUR ---
PT REQUESTING TYLENOL FOR HEADACHE ON RIGHT SIDE OF HEAD, RADIATING TO NECK, PT STATES SHE FEELS IT IS THE HOSPITAL BED, DENIES TREMORS OR ANXIETY, PT STATES SHE DOES GET HEADACHES AT TIMES AT HOME, DENIES WANTING A BEER AT THIS TIME, PT MEDICATED WITH TYLENOL PER ORDER PER REQUEST. PT MEDICATED WITH MELATONIN PER REQUEST AND RT NYSTATIN TO PERIARE. ORAL CARE COMPLETED PER PT.
--- NOTE | 2023-05-06 20:37 | NUR ---
PT ASSISTED BY RN WITH PLACEMENT OF BIPAP, CONTINUE ON 35% FIO2, OXYGEN SATS 92% PT ATTEMPTING TO REST WITH EYES CLOSED.
--- NOTE | 2023-05-06 21:25 | NUR ---
RN TO ROOM PER PT REQUEST, PT SITTING ON SIDE OF BED, STATES SHE FEELS VERY ANXIOUS, JITTERY, STATES HEADACHE CONTINUES, STATES SHE COULDN'T TOLERATE BIPAP AND TOOK IT OFF, REQUESTING ATIVAN, PT MEDICATED WITH 1 MG ATIVAN PO PER ORDER, PT LAYING DOWN IN BED, DESIRES TO HAVE OXYGEN PER NC FOR NOW, STATES AFTER SHE CALM DOWN SHE WOULD LIKE RT TO COME IN AND ASSIST WITH PUTTING BIPAP ON, PT DOES STATE IF SHE FALLS ASLEEP SHE DOESN'T WANT TO BE AWAKEN TO HAVE BIPAP PUT ON.
--- NOTE | 2023-05-06 23:25 | NUR ---
PT APPEARS TO SLEEP, OXYGEN SATS 88%, O2 INCREASED TO 3L/NC, SATS RISING TO 92%.
--- NOTE | 2023-05-06 23:45 | NUR ---
PATIENT ASSISTED TO THE BR A 1PA. PATIENT ABLE TO VOID. PATIENT IS BACK IN BED RESTING. BANDAID APPLIED TO PATIENTS ABD. PATIENT IS BACK IN BED RESTING. PATIENT DENIES ANY NEEDS. CALL LIGHT IN REACH.
--- NOTE | 2023-05-07 00:40 | NUR ---
PT LAYING ON LEFT SIDE, APPEARS TO SLEEP, RESP EVEN AND REG, OXYGEN SATS 95% ON 3L/NC.
--- NOTE | 2023-05-07 02:40 | NUR ---
PT APPEARS TO SLEEP, RESP EVEN AND REG, SATS 94%
--- NOTE | 2023-05-07 02:56 | NUR ---
CALL LIGHT ANSWERED. SBA. BATHROOM AND BACK TO BED. NO OTHER NEEDS AT THIS TIME.
--- NOTE | 2023-05-07 03:00 | NUR ---
PT AWAKEN, CALM, WITHOUT COMPLAINTS, ASSESSMENT COMPLETED, SL IN LEFT FOREARM FLUSHES WELL, SITE INTACT.
--- NOTE | 2023-05-07 04:50 | NUR ---
PT CONTINUES TO SLEEP, RESP EVEN AND REG, OXYGEN IN PLACE, OXYGEN SATS STABLE.
[2023-05-07 05:22] VITALS: BP 142/62
--- NOTE | 2023-05-07 05:22 | NUR ---
PT RESTING IN BED. VITALS AND IS AND OS COMPLETE. ICE WATER REPLENISHED. NO NEEDS. CALL LIGHT WITHIN REACH
[2023-05-07 05:49] LABS: BASOPHILS 0.8 % (0-2); EOSINOPHILS 0.8 % (0-6); HEMATOCRIT 42.3 % (35.0-50.0); HEMOGLOBIN 13.9 g/dL (12.0-18.0); MCHC 32.9 g/dl (30-36); MCV 100.5 fl (81-99); MONOCYTES 9.1 % (0-12); NEUTROPHILS 69.3 % (39-80); PLATELET COUNT 242 K/uL (140-440); RDW 14.1 (10.5-15.0)
--- NOTE | 2023-05-07 05:53 | NUR ---
ANSWERED CALL LIGHT. SBA TO BATHROOM AND BACK TO BED. NO OTHER NEEDS AT THIS TIME.
[2023-05-07 05:59] LABS: ANION GAP 3.2 (7-21); BUN/CREATININE RATIO 19.38 (6.0-28.6); CALCIUM 8.9 mg/dL (8.5-10.1); CREATININE, SERUM 0.98 mg/dL (0.55-1.02); POTASSIUM 4.2 mmol/L (3.5-5.1)
--- NOTE | 2023-05-07 07:41 | NUR ---
PT RESTING EYES CLOSED AT TIME OF SHIFT REPORT. SATS 95% 02 ON AT 4LPM. CALL LIGHT IN REACH.
--- NOTE | 2023-05-07 09:18 | NUR ---
PER AM MEETING PATIENT TO DISCHARGE TODAY. NO FURTHER CASE MANAGEMENT NEEDS AT THIS TIME,
--- NOTE | 2023-05-07 09:32 | NUR ---
PATIENT REPORTS THAT LEFT ARM IV IS PAINFUL WITH ABX INFUSION. RATE CUT TO 125ML/HR AND RUNNING CONCURRENTLY WITH NS.
--- NOTE | 2023-05-07 09:50 | NUR ---
ZULAY PURCELL WAS JUST FINISHING CARE. PT HAD SETTLED ON BED AND STATED WAS VERY TIRED. CONSENTED TO PRAYER. PRAYED FOR ONGOING HEALING AND PEACE. SHORT VISIT.
[2023-05-07 10:05] VITALS: BP 129/45
--- NOTE | 2023-05-07 10:22 | NUR ---
PT UP TO THE CHAIR FOR BREAKFAST NO S/S OF ALCOHOL WITHDRAWL. BREAKFAST WELL TOLERATED WITH BEER. PT RETURNS TO BED AFTER MEAL SITTING UP NOW TALKING WITH A VISITOR DRINKING 2ND BEER
--- NOTE | 2023-05-07 10:58 | NUR ---
DR HORTON IN TO SEE PT DC DISCUSSED AT LENGTH ALL QUESTIONS ANSWERED. PT AGREES SHE IS READY TO GO HOME
[2023-05-07] MEDS ORDERED: PREDNISONE20 MG PO (11:07)
[2023-05-07] MEDS ORDERED: VENTOLIN HFA18 GM INH (11:07)
[2023-05-07] MEDS ORDERED: LASIX20 MG PO (11:08)
[2023-05-07] MEDS ORDERED: VITAMIN B-1250 MG PO (11:09)
== END 2023-05-07 12:16 | disposition home or self-care (01) | DRG 189 ==
LOC: ED 09:59 → MS 10:00
PROVIDERS: Student in an Organized Health Care Education/Training Program; ADMIT Family Medicine; ATTEND Family Medicine
PROC: 5A09357 Assistance with Respiratory Ventilation, Less than 24 Consecutive Hours, Continuous Positive Airway Pressure (ICD-10-PCS; principal; 2023-05-04)
PROC: HZ2ZZZZ Detoxification Services for Substance Abuse Treatment (ICD-10-PCS; 2023-05-04)
DX: J96.21 Acute and chronic respiratory failure with hypoxia (principal); J44.1 Chronic obstructive pulmonary disease with (acute) exacerbation; Z68.43 Body mass index [BMI] 50.0-59.9, adult; R04.2 Hemoptysis; F10.939 Alcohol use, unspecified with withdrawal, unspecified; J81.1 Chronic pulmonary edema; E66.01 Morbid (severe) obesity due to excess calories; Z20.822 Contact with and (suspected) exposure to COVID-19; I16.0 Hypertensive urgency; E83.39 Other disorders of phosphorus metabolism; E07.89 Other specified disorders of thyroid; Z87.442 Personal history of urinary calculi; Z99.81 Dependence on supplemental oxygen; Z96.0 Presence of urogenital implants; Z86.010 Personal history of colon polyps; Z88.5 Allergy status to narcotic agent; Z79.899 Other long term (current) drug therapy; Z98.49 Cataract extraction status, unspecified eye; Z79.51 Long term (current) use of inhaled steroids; Z87.891 Personal history of nicotine dependence; Z79.2 Long term (current) use of antibiotics; Z88.8 Allergy status to other drugs, medicaments and biological substances
CPT/HCPCS: 36415; 71045; 80048; 80053; 83735; 83880; 84100; 84484; 85025; 87502; 93005; 93010; 94640; 94660; 94762; 96365; 96366; 96375; 96376; 99285-25; A9270; A9270-GY; C9803; G0378; J0360; J0456; J2060; J7060; J7512; U0002

== ENCOUNTER 2025-03-16 23:42 | Inpatient (IN) | payer OTHER ==
[~2025-03-16] VITALS: Ht 167.6 cm; Wt 116.3 kg
[~2025-03-16 23:42] MED LIST changes: +LASIX20 MG PO; +MELOXICAM15 MG PO; +VITAMIN B-1250 MG PO
[2025-03-16] MEDS ORDERED: SODIUM CHLORIDE 0.9% 500 ML IV PRN (23:45)
[2025-03-16] MEDS ORDERED: ALBUTEROL/IPRATROPIUM 3 ML NEB INH ONE (23:45)
[2025-03-16] MEDS ORDERED: FUROSEMIDE20 MG PO (23:52)
[2025-03-17] VITALS (7 sets, daily range): BP systolic 118–147; BP diastolic 60–71
[2025-03-17 00:33] LABS: BASOPHILS 0.7 % (0.1-1.2); EOSINOPHILS 1.4 % (0.7-5.8); LYMPHOCYTES 23.8 % (19.3-51.7); MCH 30.6 PG (25.6-32.2); MCHC 33.3 g/dL (32.2-35.5); MCV 92.0 fL (79.4-94.8); MONOCYTES 6.7 % (4.7-12.5); NEUTROPHILS 66.6 % (34.0-71.1); RBC 4.51 M/uL (3.93-5.22)
[2025-03-17 00:56] LABS: ALT (SGPT) 32.0 U/L (14-59); AST (SGOT) 19.0 U/L (15-37); GLOMERULAR FILTRATION RATE,EST 8.0 mL/min (>60); PROTEIN, TOTAL 8.8 g/dL (6.4-8.2); UREA NITROGEN 73.0 mg/dL (7-18)
[2025-03-17] MEDS ORDERED: SODIUM CHLORIDE 0.9% 1,000 ML IV ONE (01:15)
[2025-03-17] MEDS ORDERED: LOPERAMIDE HCL 2 MG CAP PO ONE (01:30)
[2025-03-17 03:50] LABS: GLOMERULAR FILTRATION RATE,EST 9.0 mL/min (>60); UREA NITROGEN 68.0 mg/dL (7-18)
[2025-03-17] MEDS ORDERED: SODIUM CHLORIDE 0.9% 1,000 ML IV PRN (04:00)
[2025-03-17] MEDS ORDERED: LOPERAMIDE HCL 2 MG CAP PO PRN (04:45)
[2025-03-17] MEDS ORDERED: SODIUM CHLORIDE 0.9% 1,000 ML IV SCH ×2 (04:45→11:30)
[2025-03-17] MEDS ORDERED: ACETAMINOPHEN 325 MG TAB PO PRN (04:45)
[2025-03-17] MEDS ORDERED: LORazepam 1 MG TAB PO PRN (05:15)
[2025-03-17] MEDS ORDERED: LORazepam 2 MG/ML VIAL IV/IM PRN (05:15)
[2025-03-17] MEDS ORDERED: ALBUTEROL SULFATE 0.083% 3 ML VIAL INH PRN (05:30)
[2025-03-17 05:36] LABS: BLOOD/HGB, URINE SMALL (Negative); KETONE, URINE NEGATIVE (Negative); LEUK ESTERASE, URINE SMALL (negative); NITRITE, URINE NEGATIVE (negative)
[2025-03-17 05:42] LABS: BACTERIA, URINE 2+ /hpf (negative); CRYSTALS, URINE NONE SEEN (0-1+)
[2025-03-17 05:43] LABS: CASTS, URINE HYALINE 1+ \\lpf; EPITHELIAL CELLS, URINE SQUAMOUS 1+ /lpf (0-1+); REFLEX CULTURE, URINE Yes (No)
--- NOTE | 2025-03-17 06:41 | NUR ---
pt ARRIVED TO THE FLOOR VIA STRETCHER. pt ABLE TO GET UP AND WALK TO THE BED. 2LNC PLACED ON pt. O2 CHRONIC FOR pt. ASSESSMENT AND VITAL SIGNS DONE. ADDMISSION DONE. pt DENIES ANY OTHER NEEDS AT THIS TIME. CALL LIGHT WITHIN REACH. IV'S ASSESSED, WNL. WATER REFRESHED.
--- NOTE | 2025-03-17 07:18 | NUR ---
VERBAL REPORT RECEIVED FROM ZULAY YE. PT AWAKE, REQUESTS BATHROOM, [facility] SUM[facility]ERS ASSISTS.
[2025-03-17] MEDS ORDERED: IPRAT-ALBUT 0.5-3 ML INH (07:31)
[2025-03-17 07:32] LABS: BASOPHILS 0.2 % (0.1-1.2); EOSINOPHILS 0.1 % (0.7-5.8); LYMPHOCYTES 6.8 % (19.3-51.7); MCH 31.3 PG (25.6-32.2); MCHC 33.0 g/dL (32.2-35.5); MCV 95.0 fL (79.4-94.8); MONOCYTES 0.9 % (4.7-12.5); NEUTROPHILS 91.0 % (34.0-71.1); RBC 3.80 M/uL (3.93-5.22)
[2025-03-17 07:40] LABS: ALT (SGPT) 26.0 U/L (14-59); AST (SGOT) 15.0 U/L (15-37); GLOMERULAR FILTRATION RATE,EST 11.0 mL/min (>60); PROTEIN, TOTAL 7.4 g/dL (6.4-8.2); UREA NITROGEN 67.0 mg/dL (7-18)
[2025-03-17] MEDS ORDERED: ALBUTEROL/IPRATROPIUM 3 ML NEB INH SCH ×2 (08:00→20:00)
[2025-03-17] MEDS ORDERED: BUDESONIDE 0.5 MG/2 ML VIAL INH SCH (08:00)
--- NOTE | 2025-03-17 08:10 | NUR ---
HOURLY ROUNDING. PATIENT CALLED FOR ASSISTANCE WITH USING THE RESTROOM. PATIENT IS CONNECTED TO CPOX. OFFERED PATIENT FOR MORNING CARE. PATIENT REQUESTED DENTURE CREME, CREME HAS BEEN GIVEN. PATIENT IS NOW EATINGIN RECLINER CHAIR. BOARD HAS BEEN UPDATED AND CALL LIGHT HAS BEEN PLACED WITHIN REACH
--- NOTE | 2025-03-17 08:58 | NUR ---
ALERT AND ORIENTED IN RECLINER. LIVES IN [address]. SHE IS CAREGIVER FOR "A MAN WHO IS IN BED AT HOME." STATES SHE DOES HAVE ASSISTANCE TO CARE FOR THIS PERSON FOR A FEW DAYS WHILE SHE IS HERE. STATES SHE ABSOLUTELY WILL HAVE TO RETURN HOME WHEN MEDICALLY READY. STATES SHE HAS A CPAP AND OXYGEN THROUGH [employer]. SHE USES [employer] FOR MEDICAL APPOINTMENTS. DENIES DIFFICULTY PAYING UTILITIES OR FOR FOOD OR MEDICATIONS. SHE HAS NO KNOWN CM NEEDS AT THIS TIME.
[2025-03-17] MEDS ORDERED: DOXYCYCLINE HYCLATE 100 MG CAP PO SCH ×2 (09:00→21:00)
[2025-03-17] MEDS ORDERED: diazePAM 5 MG TAB PO SCH (09:00)
[2025-03-17 09:23] LABS: AMPHETAMINES, URINE POSITIVE (NEGATIVE); BARBITURATES, URINE NEGATIVE (NEGATIVE); BENZODIAZEPINE, URINE NEGATIVE (NEGATIVE); CANNABINOID, URINE NEGATIVE (NEGATIVE); COCAINE, URINE NEGATIVE (NEGATIVE); ECSTASY, URINE POSITIVE (NEGATIVE); FENTANYL, URINE NEGATIVE (NEGATIVE); METHADONE, URINE NEGATIVE (NEGATIVE); OPIATES, URINE NEGATIVE (NEGATIVE); OXYCODONE, URINE NEGATIVE (NEGATIVE); PHENCYCLIDINE, URINE NEGATIVE (NEGATIVE)
--- NOTE | 2025-03-17 09:40 | NUR ---
DR. MANCUSO IN ROOM, SPEAKS WITH PATIENT ABOUT POC.
[2025-03-17] MEDS ORDERED: LACTATED RINGER'S 1,000 ML IV SCH (10:15)
[2025-03-17] MEDS ORDERED: HEParin SOD (PORCINE) 5,000 UNIT/ML SDV SUB-Q SCH (10:18)
[2025-03-17 10:21] LABS: CHOLESTEROL/HDL RATIO 3.8; LDL CHOLESTEROL 106.0 mg/dL (< 129); NON-HDL CHOLESTEROL 135.0; VLDL CHOLESTEROL 29.0
--- NOTE | 2025-03-17 10:21 | NUR ---
PT NOT AVAILABLE FOR VISIT. PROVIDED PRAYER.
[2025-03-17] MEDS ORDERED: predniSONE 20 MG TAB PO SCH (10:30)
--- NOTE | 2025-03-17 11:10 | NUR ---
HOURLY ROUNDING. PATIENT WAS INDEPENDENT WHEN USING THE BATHROOM.PATIENT IS NOW BACK IN BED
[2025-03-17 11:14] LABS: INFLUENZA B NAA NEGATIVE (NEGATIVE); RESPIRATORY SYNCYTIAL VIR NAA NEGATIVE (NEGATIVE)
[2025-03-17] MEDS ORDERED: AZITHROMYCIN500 MG PO (11:30)
--- NOTE | 2025-03-17 11:31 | NUR ---
MED REC COMPLETE
--- NOTE | 2025-03-17 11:53 | NUR ---
UR CLINICAL REVIEW: MCG-PER MCG REVIEW MEET INPT CRITERIA FOR RENAL FAILURE WITH NEED FOR IVF/MONITORING ODS [facility] ORDER MATCHES REG CLINICALS FAXED TO [facility] FOR AUTH REVIEW DISCHARGE TO HOME WHEN STABLE 03/18/25
[2025-03-17] MEDS ORDERED: PHARMACY RENAL DOSE ADJUSTMENT 1 DOSE MISC PO SCH (12:00)
--- NOTE | 2025-03-17 12:07 | NUR ---
HOURLY ROUNDING. PATIENT IS WANTING TO TAKE A NAP WITH CPAP ON RT CAME TO PUT ON CPAP PATIENT APPEARS TIRED NO REQUEST FROM PATIENT AT THIS TIME. PATIENT HAS BEEN NOTIFIED THAT LUNCH WILL BE OUT SOON
--- NOTE | 2025-03-17 12:56 | NUR ---
HOURLY ROUNDING. PATIENT ASSISTED TO THE RESTROOM, NO REQUEST FROM PATIENT AT THIS TIME. [facility] PATIENT ROOM
--- NOTE | 2025-03-17 14:11 | NUR ---
PT RESTS IN BED WITH EYES CLOSED, CPAP ON, RESP EVEN AND UNLABORED.
--- NOTE | 2025-03-17 15:34 | NUR ---
HOURLY ROUNDING. PATIENT CALLED NEEDED ASSISTANCE WITH GOING TO THE BATHROOM, PATIENT IS A STAND BY ASSIST. NO FURTHER REQUEST FROM PATIENT AT THIS TIME. CALL LIGHT HAS BEEN PLACED WITHIN REACH
[2025-03-17] MEDS ORDERED: diazePAM 2 MG TAB ONE (17:25)
--- NOTE | 2025-03-17 17:54 | NUR ---
HOURLY ROUNDING. PATIENT FINISHED DINNER, FILLED PATIENT WATER AND ICE CUP. CALL LIGHT HAS BEEN PLACED WITHIN REACH. NO FURTHER REQUEST FROM PATIENT AT THIS TIME
--- NOTE | 2025-03-17 18:55 | NUR ---
PT RESTS IN RECLINER WITH EYES CLOSED, RESP EVEN AND UNLABORED, CPOX ON, SPO2 98%.
--- NOTE | 2025-03-17 19:20 | NUR ---
REPORT RECEIVED FROM DAY SHIFT RN. PATIENT RESTING IN CHAIR WITH EYES CLOSED. RESPIRATIONS EVEN AND UNLABORED. CALL LIGHT IN REACH.
--- NOTE | 2025-03-17 19:32 | NUR ---
NEW BAG IV FLUID INFUSING PER ORDER. PATIENT HAS NO FURTHER NEEDS. CALL LIGHT IN REACH.
--- NOTE | 2025-03-17 20:52 | NUR ---
PATIENT RESTING IN CHAIR. SCHEDULED MEDICATIONS ADMINISTERED. VS OBTAINED AND RECORDED. PATIENT CIWA SCORE IS 8. ATIVAN ADMINISTERED. ASSESSMENT COMPLETE. PATIENT EDUCATED TO ROOM AND CALL LIGHT. PATIENT HAS NO FURTHER NEEDS AT THIS TIME. CALL LIGHT IN REACH.
[2025-03-17] MEDS ORDERED: MELATONIN 3 MG TAB PO PRN (21:00)
--- NOTE | 2025-03-17 22:38 | NUR ---
CALL LIGHT ANSWERED. PATIENT UP TO BATHROOM USING SBA AND CANE TO VOID. PATIENT BACK TO BED. PATIENT HAVING COMPLAINTS OF "CHRONIC HIP PAIN". NIO ORDER PLACED. NO FURTHER NEEDS AT THIS TIME. CALL LIGHT IN REACH.
--- NOTE | 2025-03-17 22:42 | NUR ---
CHICKEN BROTH AND ICE WATER PROVIDED PER PATIENT'S REQUEST.
[2025-03-17] MEDS ORDERED: ACETAMINOPHEN 500 MG TAB PO PRN (22:45)
--- NOTE | 2025-03-17 23:00 | NUR ---
THIS RN ROUNDING ON PATIENT TO GIVE PAIN MEDICATION PER PATIENT REQUEST. PATIENT RESTING IN BED WITH EYES CLOSED. RESPIRATIONS EVEN AND UNLABORED. CALL LIGHT IN REACH.
[2025-03-18] VITALS (12 sets, daily range): BP systolic 119–151; BP diastolic 56–73
--- NOTE | 2025-03-18 01:07 | NUR ---
PATIENT RESTING IN BED WITH EYES CLOSED. RESPIRATIONS EVEN AND UNLABORED. CALL LIGHT IN REACH.
--- NOTE | 2025-03-18 02:08 | NUR ---
PATIENT RESTING IN BED. PATIENT UP TO BATHROOM TO VOID USING 1P SBA AND CANE. PATIENT BACK TO BED. VS AND I&Os OBTAINED AND RECORDED. NEW BAG IV FLUID INFUSING PER ORDER. PATIENT DENIES FURTHER NEEDS AT THIS TIME. CALL LIGHT IN REACH.
--- NOTE | 2025-03-18 04:00 | NUR ---
PATIENT RESTING IN BED ON BACK WITH EYES CLOSED. RESPIRATIONS EVEN AND UNLABORED. CALL LIGHT IN REACH.
[2025-03-18 05:34] LABS: BASOPHILS 0.1 % (0.1-1.2); EOSINOPHILS 0 % (0.7-5.8); LYMPHOCYTES 8.8 % (19.3-51.7); MCH 31.6 PG (25.6-32.2); MCHC 34.0 g/dL (32.2-35.5); MCV 93.1 fL (79.4-94.8); MONOCYTES 5.4 % (4.7-12.5); NEUTROPHILS 84.3 % (34.0-71.1); RBC 3.35 M/uL (3.93-5.22)
--- NOTE | 2025-03-18 05:35 | NUR ---
PATIENT UP TO BATHROOM USING 1P SBA AND CANE TO VOID. PATIENT BACK TO BED. VS AND I&Os OBTAINED AND RECORDED. ASSESSMENT COMPLETE. PATIENT DENIES FURTHER NEEDS OR SOB. CALL LIGHT IN REACH.
[2025-03-18 05:55] LABS: ALT (SGPT) 23.0 U/L (14-59); AST (SGOT) 10.0 U/L (15-37); GLOMERULAR FILTRATION RATE,EST 21.0 mL/min (>60); PROTEIN, TOTAL 6.6 g/dL (6.4-8.2); UREA NITROGEN 50.0 mg/dL (7-18)
--- NOTE | 2025-03-18 07:14 | NUR ---
REPORT RECEIVED FROM ZULAY RAND. PATIENT IS RESTING IN BED WITH EYES CLOSED, RR EVEN AND UNLABORED WITH 3LNC IN PLACE AND CPOX AT BEDSIDE. CALL LIGHT AND PERSONAL BELONGINGS IN REACH.
[2025-03-18] MEDS ORDERED: SODIUM ZIRCONIUM CYCLOSILICATE 10 GM PACK PO ONE ×3 (07:45→21:15)
[2025-03-18] MEDS ORDERED: MULTIVITAMINS THERAPEUTIC 1 EA TAB PO SCH (08:00)
--- NOTE | 2025-03-18 08:49 | NUR ---
PATIENT WAS ASSISTED SBA TO THE BATHROOM WITH CANE AND BACK TO CHAIR. PATIENT WAS PROVIDED WITH A WARM WASH CLOTH FOR FACE AND HANDS. PATIENT IS SITTING IN CHAIR FOR BREAKFAST. PATIENTS LINEN WERE CHANGED. PATIENTS CALL LIGHT IS IN REACH AND NO FURTHER NEEDS AT THIS TIME.
--- NOTE | 2025-03-18 08:55 | NUR ---
JAYLA IN TO SEE PATIENT. ALL QUESTIONS ANSWERED AND CONCERNS ADDRESSED.
[2025-03-18] MEDS ORDERED: MONTELUKAST SODIUM 10 MG TAB PO SCH (09:00)
[2025-03-18] MEDS ORDERED: FUROSEMIDE 40 MG/4 ML VIAL IV ONE (09:15)
[2025-03-18] MEDS ORDERED: OXYCODONE HCL5 MG PO (09:30)
--- NOTE | 2025-03-18 10:30 | NUR ---
STATES NO NEEDS AT HOME FOR DISCHARGE. REQUESTS ASSIST TO BATHROOM, NURSING STAFF NOTIFIED.
--- NOTE | 2025-03-18 10:59 | NUR ---
NEW BAG OF IVF HUNG. PATIENT REPORTS THE NEED TO VOID, BSC PROVIDED. PATIENT TRANSFERS HERSELF INDEPENDENTLY FROM RECLINER TO BSC, PROVIDES OWN ROBERT-CARE, AND BACK TO RECLINER. WARM BLANKETS PROVIDED. PATIENT HAS NO OTHER REQUESTS, CALL LIGHT AND PERSONAL BELONGINGS IN REACH.
--- NOTE | 2025-03-18 11:09 | NUR ---
VISITED DURING SPIRITUAL CARE ROUNDS. PT APPEARED TO BE SLEEPING. DID NOT DISTURB. PROVIDED PRAYER.
--- NOTE | 2025-03-18 11:22 | NUR ---
PATIENT LAYING IN CHAIR. PATIENT OFFERED A SHOWER AND PATIENT REFUSED RIGHT NOW BECUASE SHE WAS TIRED. PATIENTS CALL LIGHT IN REACH AND NO FURTHER NEEDS AT THIS TIME.
--- NOTE | 2025-03-18 12:11 | NUR ---
PATIENT IS SITTING IN CHAIR WITH LUNCH TRAY SET UP. PATIENT WAS ASSISTED TO THE BED SIDE [facility]. PATIENTS CALL LIGHT IN REACH AND NO FURTHER NEEDS AT THIS TIME.
--- NOTE | 2025-03-18 12:47 | NUR ---
PATIENT RESTING IN RECLINER WITH LUNCH TRAY HALF EATEN IN FRONT OF HER. PATIENT IS RESTING WITH EYES CLOSED, RR EVEN AND UNLABORED, 2LNC AND CPOX AT CHAIRSIDE. CALL LIGHT AND PERSONAL BELONGINGS IN REACH.
--- NOTE | 2025-03-18 13:26 | NUR ---
PATIENT IS RESTING IN CHAIR. PATIENTS VITAL SIGNS ANS I&OS WERE DONE. PATIENT RUFUSED SHOWER. PATIENT STATED "NOT RIGHT NOW IM TIRED" PATIENT CALL LIGHT IN REACH AND NO FURTHER NEEDS AT THIS TIME.
--- NOTE | 2025-03-18 14:20 | NUR ---
PATIENT AMBULATES WITH HER CANE TO THE RESTROOM, VOIDS, AND RETURNS TO HER RECLINER. CATHY FROM RESPIRATORY THERAPY ARRIVES TO ADMINISTER BREATHING TX, SHASHANK FROM PHYSICAL THREAPY PRESENT FOR DAVIDSON EDUCATION. BOTH IVs FLUSH WNL. PATIENT HAS NO REQUESTS, RESPIRATORY THERAPY REMAINS IN ROOM. CALL LIGHT AND PERSONAL BELONGINGS IN REACH.
--- NOTE | 2025-03-18 14:33 | NUR ---
PATIENT IS RESTING IN CHAIR. A WARM BLANKET WAS PROVIDED. PATIENTS CALL LIGHT IS WITHIN REACH AND NO FURTHER NEEDS AT THIS TIME.
--- NOTE | 2025-03-18 14:47 | NUR ---
LAB REQUESTS BLOOD BE DRAWN FROM PATIENT'S EJ. COMPLETED. CLAVE CHANGED. PATIENT REMAINS SITTING UP IN CHAIR WITH BLE ELEVATED. NO REQUESTS, CALL LIGHT AND PERSONAL BELONGINGS IN REACH.
--- NOTE | 2025-03-18 14:51 | NUR ---
PATIENT REQUESTING TO TO LAY DOWN FOR AWHILE. AMBULATES WITH HER CANE FROM RECLINER TO BED WITHOUT ASSISTANCE. PILLOWS PROVIDED FOR POSITIONING. CALL LIGHT IN REACH, NO REQUESTS.
[2025-03-18 15:06] LABS: ALT (SGPT) 27.0 U/L (14-59); AST (SGOT) 13.0 U/L (15-37); GLOMERULAR FILTRATION RATE,EST 24.0 mL/min (>60); PROTEIN, TOTAL 7.1 g/dL (6.4-8.2); UREA NITROGEN 45.0 mg/dL (7-18)
--- NOTE | 2025-03-18 15:28 | NUR ---
UPDATED ON PATIENT'S REPEAT POTASSIUM LEVELS. TELE PLACED ORDERED, MEDICATION ADMINISTERED ORDERED. PATIENT REMAINS RESTING IN BED, REPORTS SHE FEELS "TIRED" AND "NOT GREAT". PATIENT CONCERNED ABOUT ALCOHOL. PATIENT CURRENTLY EATING SHELDON CRACKERS IN BED. THIS RN REMAINS IN ROOM.
--- NOTE | 2025-03-18 15:41 | NUR ---
PRN LORAZEPAM ADMINISTERED FOR CIWA OF 10. GRAPE JUICE AND SPRITE PROVIDED. PATIENT ENCOURAGED TO CALL HER FRIEND TO BRING HER HOME CPAP, VERBALIZES THAT SHE WILL. NO REQUESTS, CALL LIGHT AND PERSONAL BELONGINGS IN REACH.
[2025-03-18] MEDS ORDERED: DEXTROSE 50% 50 ML SYR IV ONE (16:30)
[2025-03-18] MEDS ORDERED: Insulin Regular, Human 100 UNIT/ML ML IV ONE (16:30)
[2025-03-18] MEDS ORDERED: Calcium Gluconate in NS 1,000 MG/50 ML BAG IV SCH (16:45)
--- NOTE | 2025-03-18 16:47 | NUR ---
PATIENT WAS ASSISTED SBA TO THE BATHROOM AND BACK TO BED. PATIENTS CALL LIGHT IS WITHIN REACH AND THERE ARE NO FURTHER NEEDS AT THIS TIME.
--- NOTE | 2025-03-18 17:52 | NUR ---
PATIENT'S CPAP DELIVERED, CURRENTLY IN [facility] BAG WITH PATIENT STICKER AT BEDSIDE. CATHY IN RESPIRATORY THERAPY ALERTED THAT IT IS HERE. PATIENT IS RESTING IN BED WITH EYES CLOSED, RR EVEN AND UNLABORED WITH AUDIBLE SNORE AND 2LNC IN PLACE. CALL LIGHT AND PERSONAL BELONGINGS IN REACH.
--- NOTE | 2025-03-18 19:18 | NUR ---
REPORT RECEIVED FROM DAY SHIFT RN. PATIENT RESTING IN BED WITH EYES CLOSED. RESPIRATIONS EVEN AND UNLABORED. CALL LIGHT IN REACH.
[2025-03-18] MEDS ORDERED: ARFORMOTEROL TARTRATE 15 MCG/2 ML VIAL INH SCH (20:00)
--- NOTE | 2025-03-18 20:05 | NUR ---
PATIENT RESTING IN BED. AWAKENS EASILY. PATIENT ABLE TO SWALLOW WATER AND PILLS, SEATED STRIGHT UP IN BED, WITHOUT DIFFICULTY. NO ASPIRATION NOTED. PATIENT OLLIE WELL. PATIENT A&O x3 AT THIS TIME. PATIENT REPOSITIONED IN BED. VS AND I&Os OBTAINED AND RECORDED. PATIENT DENIES FURTHER NEEDS AT THIS TIME. CALL LIGHT IN REACH. ASSESSMENT COMPLETE. BED ALARM ON.
--- NOTE | 2025-03-18 20:50 | NUR ---
PATIENT RESTING IN BED. VS AND I&Os OBTAINED AND RECORDED. PATIENT CIWA SCORE IS 10. PRN MEDICATION ADMINSITERED. SCHEDULED MEDICATION ADMINISTERED. PATIENT DENIES FURTHER NEEDS AT THIS TIME . CALL LIGHT IN REACH.
--- NOTE | 2025-03-18 21:02 | NUR ---
PATIENT RESTING IN BED WATCHING TV. DENIES NEEDS AT THIS TIME. CALL LIGHT IN REACH.
[2025-03-18 21:05] LABS: GLOMERULAR FILTRATION RATE,EST 27.0 mL/min (>60); UREA NITROGEN 44.0 mg/dL (7-18)
--- NOTE | 2025-03-18 22:00 | NUR ---
PATIENT RESTING IN BED WITH HOME CPAP IN PLACE. SCHEDULED MEDICATION ADMINISTERED. PATIENT OLLIE WELL. NO FURTHER NEEDS. CALL LIGHT IN REACH.
[2025-03-19 00:06] VITALS: BP 146/53
--- NOTE | 2025-03-19 00:15 | NUR ---
ROUNDING ON PATIENT. PATIENT UP TO BATHROOM USING 1P SBA AND CANE TO VOID. PATIENT BACK TO BED. VS AND I&Os OBTAINED AND RECORDED. CIWA SCORE OF 9. MEDICATION ADMINISTERED. BED ALARM ON. CALL LIGHT IN REACH.
--- NOTE | 2025-03-19 03:17 | NUR ---
BED ALARM, ALARMING. PATIENT UP TO BATHROOM USING 1P SBA AND CANE. PATIENT BACK TO BED. CIWA SCORE OF 9. MEDICATION ADMINISTERED. PATIENT HAS NO FURTHER NEEDS. CALL LIGHT IN REACH. BED ALARM ON.
[2025-03-19 05:15] LABS: BASOPHILS 0.2 % (0.1-1.2); EOSINOPHILS 0.1 % (0.7-5.8); LYMPHOCYTES 13.3 % (19.3-51.7); MCH 30.9 PG (25.6-32.2); MCHC 33.1 g/dL (32.2-35.5); MCV 93.4 fL (79.4-94.8); MONOCYTES 6.9 % (4.7-12.5); NEUTROPHILS 76.3 % (34.0-71.1); RBC 3.49 M/uL (3.93-5.22)
[2025-03-19 05:16] VITALS: BP 153/69
--- NOTE | 2025-03-19 05:18 | NUR ---
BED ALARM, ALARMING. PATIENT UP TO BATHROOM USING 1P SBA AND CANE TO VOID. PATIENT BACK TO BED. VS AND I&Os OBTAINED AND RECORDED. BED ALARM ON. NO FURTHER NEEDS. CALL LIGHT IN REACH. NEW BAG IV FLUID INFUSING PER ORDER.
[2025-03-19 05:26] LABS: GLOMERULAR FILTRATION RATE,EST 35.0 mL/min (>60); UREA NITROGEN 38.0 mg/dL (7-18)
--- NOTE | 2025-03-19 07:15 | NUR ---
BED ALARM ANSWERED. PT SITTING AT EDGE OF BED STATING NEED TO USE BATHROOM. HAY CHOPPER SBA WITH CANE TO BATHROOM. PT VOIDED AND ASSISTED BACK TO BED. PT STATES NO FURTHER NEEDS AT THIS TIME. CALL LIGHT WITHIN REACH AND BED ALARM ON.
--- NOTE | 2025-03-19 07:20 | NUR ---
REPORT RECIEVED FROM ZULAY RAND. PATIENT RESTING IN BED ON HER LEFT SIDE WITH HER EYES CLOSED. EVEN AND UNLABORED RESPIRATIONS NOTED. CALL LIGHT AND PERSONAL BELONGINGS ARE WITHIN REACH. WHITE BOARD UPDATED.
[2025-03-19] MEDS ORDERED: THIAMINE HCL 100 MG TAB PO SCH (08:00)
[2025-03-19] MEDS ORDERED: FOLIC ACID 1 MG TAB PO SCH (08:00)
--- NOTE | 2025-03-19 08:50 | NUR ---
INTO SEE PATIENT. PATIENT ASLEEP IN BED. NURSE AT BEDSIDE. PATIENT AWAKES FOR MEDICATION. PATIENT STATES SHE WILL GO HOME AT TIME OF DISCHARGE AND WILL NEED A TAXI WHEN MEDICALLY CLEARED. NO FUTHER CM NEEDS AT THIS TIME.
[2025-03-19] MEDS ORDERED: MAGNESIUM SULFATE 2 GM/50 ML BAG IV SCH (09:00)
--- NOTE | 2025-03-19 09:30 | NUR ---
PATIENT MEDICATED PER EMAR. THIS RN ASSISTED PATIENT UP TO BEDSIDE COMMODE, THEN TO CHAIR FOR BREAKFAST. IV INFUSING CONTINUOUS. NO SIGNS OR SYMPTOMS OF INFECTION/INFILTRATION AT IV SITE, DRESSING IS INTACT. PATIENT WITH CIWA SCORE OF 8. PATIENT DENIES SOB, BUT DID HAVE INCREASED REPIRATORY RATE WITH TRANSFERS. PATIENT LUNGS ARE CLEAR IN THE RIGHT UPPER LOBE, DIMINISHED IN THE LEFT UPPER LOBE, AND WITH DIMINISHED CRACKLES IN THE BILATERAL BASES. PATIENT IS ON 2L NC AT 92%. EXTRA ORANGE JUICE PROVIDED PER PATIENT REQUEST. PATIENT AGREED TO A SHOWER "AT SOME POINT" TODAY. PATIENT WITHOUT FURTHER NEEDS AT THIS TIME. CALL LIGHT AND PERSONAL BELONGINGS ARE WITHIN REACH.
[2025-03-19 09:33] VITALS: BP 157/72
--- NOTE | 2025-03-19 09:51 | NUR ---
PATIENT IS CURRENTLY RESTING IN THEIR CHAIR. BED LINENS AND JUAN WERE CHANGED BY THIS TOPOLOGY PROFESSOR. VITALS AND I&O'S TAKEN AND DOCUMENTED. BREAKFAST TRAY REMOVED. PATIENT WAS PROVIDED A WARM BLANKET. NO OTHER CARES WERE REQUESTED. CALL LIGHT AND PERSONAL ITEMS ARE WITHIN REACH. ZULAY PRASAD ENTERED ROOM.
--- NOTE | 2025-03-19 10:33 | NUR ---
PATIENT RESTING IN BED WITH CPAP ON. PATIENT WITHOUT ANY NEEDS AT THIS TIME. CALL LIGHT AND PERSONAL BELONGINGS ARE WITHIN REACH.
[2025-03-19 11:17] VITALS: BP 157/72
--- NOTE | 2025-03-19 11:21 | NUR ---
PATIENT NOTED TO HAVE REDNESS SCATTERED ON BILATERAL ARMS, AROUND NECK, CHEST, AND FACE. PATIENT REPORTS REDNESS BEING "ITCHY", BUT PATIENT NOTED TO NOT BE SCRATCHING AT SKIN. PATIENT RESTING WITH EYES CLOSED AND GIVING MINIMAL ANSWERS/NOISES WHEN ASKED QUESTIONS BY THIS RN. DR DICKERSON NOTIFIED DUE TO CONCERNS OF PATIENT BEHAVIOR AND NEW REDNESS ON SKIN. MD STATES HE'S NOT CONCERNED OF PATIENT BEHAVIOR DUE TO PATIENT BASELINE IS SLEEPING MORE IN DAYTIME AND AWAKE MORE IN THE NIGHTS. MD STATES TO MONITOR REDNESS. MD WITH NO FURTHER ORDERS AT THIS TIME. CALL ENDED.
--- NOTE | 2025-03-19 12:32 | NUR ---
CHAIR ALARM PLACED AND TURNED ON. PATIENT IS SITTING IN THE RECLINER FOR LUNCH.
--- NOTE | 2025-03-19 13:00 | NUR ---
PATIENT RESTING IN HER CHAIR WITH HER EYES CLOSED. EVEN AND UNLABORED RESPIRATIONS NOTED. PATIENT REPORTS HER HEADACHE "IS FINE" WHEN ASKED TO RATE IT FROM 1-10. PATIENT STATES "YEAH TO LEAVE ME ALONE" WHEN ASKED BY THIS RN IF SHE NEEDED ANYTHING. CALL LIGHT AND PERSONAL BELONGINGS ARE WITHIN REACH.
[2025-03-19 13:17] VITALS: BP 163/72
--- NOTE | 2025-03-19 14:15 | NUR ---
DR DICKERSON WITH TELEPHONE ORDER TO D/C PATIENT TELE DUE TO HYPERKALEMIA BEING RESOLVED AND TO ADD CIWA PROTOCOL ATIVAN. WITH NO FURTHER ORDERS AT THIS TIME. CALL ENDED.
[2025-03-19] MEDS ORDERED: LORazepam 2 MG/ML VIAL IV/IM PRN (14:30)
[2025-03-19] MEDS ORDERED: LORazepam 1 MG TAB PO PRN (14:30)
[2025-03-19 14:33] LABS: GLOMERULAR FILTRATION RATE,EST 35.0 mL/min (>60); UREA NITROGEN 32.0 mg/dL (7-18)
[2025-03-19] MEDS ORDERED: LEVOFLOXACIN750 MG PO (14:56)
[2025-03-19] MEDS ORDERED: PREDNISONE20 MG PO (15:06)
[2025-03-19 15:19] VITALS: BP 163/77
[2025-03-19] MEDS ORDERED: LORazepam 2 MG/ML VIAL IV SCH (18:00)
[2025-03-19] MEDS ORDERED: HEParin SOD (PORCINE) 5,000 UNIT/ML SDV SUB-Q SCH (21:00)
--- NOTE | 2025-03-20 17:21 | EKG ---
[facility] [address] [facility] [place] [address] Signed Normal sinus rhythm Normal ECG When compared with ECG of 03-MAY-2023 10:15, No significant change was found Confirmed by Stef Young MD ([id number]) on 03/20/2025 5:21:12 PM Electronically Signed By: STEF YOUNG MD 03/20/25 1721 PATIENT NAME: MARTHA JOYCE FERCHO Electrocardiogram DATE OF : 61 PHYSICIAN: STEF YOUNG MD REPORT #: [id number] REPORT IS CONFIDENTIAL AND NOT TO BE RELEASED WITHOUT AUTHORIZATION
== END 2025-03-19 15:32 | disposition home or self-care (01) | DRG 682 ==
LOC: ED 23:42 → MS 23:43
PROVIDERS: Family Medicine; Student in an Organized Health Care Education/Training Program; ADMIT Student in an Organized Health Care Education/Training Program; ATTEND Student in an Organized Health Care Education/Training Program
DX: N17.9 Acute kidney failure, unspecified (principal); J96.21 Acute and chronic respiratory failure with hypoxia; J44.1 Chronic obstructive pulmonary disease with (acute) exacerbation; N39.0 Urinary tract infection, site not specified; F10.139 Alcohol abuse with withdrawal, unspecified; Z68.41 Body mass index [BMI] 40.0-44.9, adult; G47.33 Obstructive sleep apnea (adult) (pediatric); I10 Essential (primary) hypertension; Z66 Do not resuscitate; Z99.81 Dependence on supplemental oxygen; F10.10 Alcohol abuse, uncomplicated; K74.60 Unspecified cirrhosis of liver; R73.03 Prediabetes; E87.5 Hyperkalemia; E66.9 Obesity, unspecified; Z86.73 Personal history of transient ischemic attack (TIA), and cerebral infarction without residual deficits; Z87.442 Personal history of urinary calculi; Z98.49 Cataract extraction status, unspecified eye; Z98.890 Other specified postprocedural states; Z79.51 Long term (current) use of inhaled steroids; Z79.899 Other long term (current) drug therapy; Z88.5 Allergy status to narcotic agent; Z88.7 Allergy status to serum and vaccine
CPT/HCPCS: 36415; 51798; 71045; 71250; 74176; 80048; 80053; 80061; 80307; 81001; 83036; 83735; 83880; 85025; 87077; 87088; 87186; 87502; 93005; 93010; 94640; 94762; 94799; 96361; 96374; 96375; 99285-25; A9270; G0378; J0696; J1644; J1815; J1938; J2060; J2405; J2919; J3475; J7030; J7040; J7121; J7512; J7605; U0002